=== PATIENT | female | born 1955 | race Caucasian/White ===

== ENCOUNTER 2025-01-08 07:40 | Outpatient (OUT) | payer MEDICARE, OTHER, SELFPAY ==
--- NOTE | 2025-01-08 | XR_ITS ---
The [address] [address] Patient Name: CLAIRE COKER MRN: [id number] date: 1955 Sex: F Assigned Patient Location: [facility] Current Patient Location: [facility] Accession/Order Number: [id number] Exam Date: 01/08/2025 11:00 Report Date: 01/08/2025 11:12 At the request of: ZULEMA DUMONT DO Procedure: XR hand RT min 3V RIGHT HAND - 4 views CLINICAL DATA: Hand pain and thumb trigger finger COMPARISON: None AP, lateral and oblique views were obtained with supplemental lateral view of the thumb. There is osteopenia. There is no acute fracture or dislocation. There is minimal joint space narrowing and hypertrophy at some of the interphalangeal joints. Minor joint space narrowing and hypertrophy also seen at the first carpal metacarpal joint. There are no significant soft tissue abnormalities. XR/XR hand RT min 3V IMPRESSION: OSTEOPENIA AND MINIMAL DEGENERATIVE CHANGE. NO ACUTE BONY FINDINGS. Impression dictated by: Roya Manning M.D. 01/08/2025 11:12 AM Dictation Location: [place] [address] Electronically authenticated by: [id number] Y Date: 01/08/2025 11:12
--- OUTSIDE RECORDS SUMMARY | 2025-01-08 07:43 | XMS_ITS | Encounter Summary ---
Author Organization [facility] Address [address] [place] [address] Care Team Providers Care Tie Binder Name Role Phone Unavailable Primary Care Provider Unavailabl e Source Comments In the event this information is protected by the Federal Confidentiality of Alcohol and Drug AbusePatient Records regulations: The Federal rules restrict any use of the information to criminally investigate or prosecute any alcohol or drug abuse patient.[facility] Encounter Details Date Type Department Care Team (Late st Contact Info) Description 06/04/2024 Get Medical Advice Neurology [address] [place] [id number] Jace Corbin MD [address] [place] [address] Iron results Social History Tobacco Use Types Packs/Day Years Used Date Smoking Tobacco: Never Smokeless Tobacco: Never Alcohol Use Standard Drinks/Week Comments Yes 0 (1 standard drink = 0.6 oz pur e alcohol) occ PHQ-2 Answer Date Recorded PHQ-2 score 0 05/02/2024 Area Deprivation Index Answer Date Corbin rded National Score (1-100), lower number is lower ri sk 65 05/09/2024 State Score (1-10), lower number is lower risk 5 05/09/2024 Data from: https://www.neighborhoodatlas.medicine.[facility]/. Last address used for calculation [address] 05/09/2024 Comments No Sex and Gender Information Value Date Recorded Sex Assigned at Not on file Legal Sex Female 8:25 AM EST Gender Identity Not on file Sexual Orientation Not on file documented as of this encounter Miscellaneous Notes * Telephone Encounter - Ariadne Ocampo - 06/04/2024 8:52 AM EDT Please review and advise on patient message: I noticed in my visit summary that iron infusions were recommended. We???re my iron levels too high for this? JANET 05/09/24 [facility] Virtual visit (vv) F/U not scheduled IMPRESSION/PLAN: 68 year old female with HTN p/w RLS with augmentation, currently taking ropinirole 0.75 mg in the evening. She has severe symptoms of RLS bothering her during the daytime when she keeps her legs still and at nighttime (waking her up). Patient is currently taking ferrous sulfate. Plan: -check iron profiles + CBC -once the results are back, will do IV iron transfusion (given the severity of her symptoms) -add lyrica 25 mg qhs, increase every 5-7 days by 25 mg to the target of 100 mg at 5 pm -continue ropinirole 0.75 mg qhs for now (plan to taper it down later) -follow-up in 3 months Jace Corbin MD, MSc documented in this encounter Plan of Treatment Upcoming Encounters Date Type Department Care Team (Late st Contact Info) Description 02/09/2025 12:00 PM EST [facility] Neurology [address] [address] Sylvie Paris, BALANCE BRIDGE ASSEMBLER.INJECTION OPERATOR [address] [place], [place] [id number] 3 month virtual follow up 03/10/2025 8:00 AM EST Office Visit Cardiology [address] [facility] [address] [place] [address] [place] [address] QT prolongation [R94.31] documented as of this encounter Visit Diagnoses Not on filedocumented in this encounter
--- OUTSIDE RECORDS SUMMARY | 2025-01-08 07:43 | XMS_ITS | Encounter Summary ---
Author Organization [facility] Address [address] [place] [address] Care Team Providers Care Oil Expeller Operator Name Role Phone Genet Yost MD Primary Care Provider [phone] Beth Wang LIFT TRUCK OPERATOR Unavailable [phone] Reason for Visit * Reason Comments Med Refill Encounter Details Date Type Department Care Team (Late st Contact Info) Description 09/12/2022 Refill [facility] [address] [facility] [place] [address] Beth Wang NP [address] [facility] 1 [place] [id number] Primary hypertension Social History Tobacco Use Types Packs/Day Years Used Date Smoking Tobacco: Never Assessed Comments Unknown Sex and Gender Information Value Date Recorded Sex Assigned at Not on file Legal Sex Female 7:39 PM EDT Gender Identity Female 06/07/2022 7:39 PM EDT Sexual Orientation Not on file documented as of this encounter Plan of Treatment Upcoming Encounters Date Type Department Care Team (Late st Contact Info) Description 02/23/2025 11:00 AM EST Office Visit [facility] [address] [facility] [place] [address] Isabell Reyna NP [address] [facility] [place] [address] documented as of this encounter Visit Diagnoses Diagnosis Primary hypertension Unspecified essential hypertension documented in this encounter Care Teams Oil Expeller Operator Relationship Specialty Start Date End Date Genet Yost MD [address] [place] [address] PCP - General Family Medicine 09/27/22 Beth Wang NP [address] [place] [address] PCP - ACO Reach 05/02/24 documented as of this encounter
--- OUTSIDE RECORDS SUMMARY | 2025-01-08 07:43 | XMS_ITS | Encounter Summary ---
Author Organization [facility] Address [address] [place] [address] Care Team Providers Care Crystal Evaluator Name Role Phone Genet Yost MD Primary Care Provider [phone] Beth Wang HAND STRIPER Unavailable [phone] Reason for Visit * Reason Comments Med Refill Encounter Details Date Type Department Care Team (Late st Contact Info) Description 09/29/2022 Refill [facility] [address] [place] [address] Beth Wang HAND STRIPER 1912 [facility] 1 [place] [address] Restless leg syndrome Social History Tobacco Use Types Packs/Day Years Used Date Smoking Tobacco: Never Smokeless Tobacco: Never Alcohol Use Standard Drinks/Week Comments Yes 0 (1 standard drink = 0.6 oz pur e alcohol) Humiliation, Afraid, Rape, and Kick questionnair e Answer Date Recorded Within the last year, have y ou been afraid of your partner or ex-partner? No 09/27/2022 Within the last year, have y ou been humiliated or emotionally abused in other ways by your partner or ex-partner? No Within the last year, have y ou been kicked, hit, slapped, or otherwise physically hurt by your partner or ex-partner? No 09/27/2022 Within the last year, have y ou been raped or forced to have any kind of sexual activity by your partner or ex-partner? No 09/27/2022 Social Connection and Isolation Panel Answer Date Recorded In a typical week, how many times do you talk on the phone with family, friends, or neighbors? More than three times a week 09/27/2022 How often do you get togethe r with friends or relatives? More than three times a week 09/27/2022 How often do you attend chur ch or restorationist services? More than 4 times per year 09/27/2022 Do you belong to any clubs o r organizations such as cheondoism groups, unions, fraternal or athletic groups, or school groups? Yes 09/27/2022 How often do you attend meet ings of the clubs or organizations you belong to? More than 4 times per year 09/27/2022 Are you , , di vorced, , never , or living with a partner? 09/27/2022 AUDIT-C Answer Date Recorded Q1: How often do you have a drink containing alc ohol? Monthly or less 09/28/2022 Q2: How many drinks containi ng alcohol do you have on a typical day when you are drinking? 1 or 2 09/28/2022 Q3: How often do you have si x or more drinks on one occasion? Never 09/28/2022 Overall Financial Resource Strain (CARDIA) Answe r Date Recorded How hard is it for you to pa y for the very basics like food, housing, medical care, and heating? Not hard at all 09/27/2022 PHQ-2 Answer Date Recorded Patient Health Questionnaire-2 Score 0 09/28/2022 [facility] - Occupational Stress Questionnaire Answer Date Recorded Do you feel stress - tense, restless, nervous, or anxious, or unable to sleep at night because your mind is troubled all the time - these days? Not at all 09/27/2022 Exercise Vital Sign Answer Date Recorde d On average, how many days pe r week do you engage in moderate to strenuous exercise (like a brisk walk)? 4 days 09/27/2022 On average, how many minutes do you engage in exercise at this level? 30 min 09/27/2022 Hunger Vital Sign Answer Date Recorded Within the past 12 months, y ou worried that your food would run out before you got the money to buy more. Never true 09/28/19 23 Within the past 12 months, t he food you bought just didn't last and you didn't have money to get more. Never true 09/27/2022 PRAPARE - Transportation Answer Date Re corded In the past 12 months, has l ack of transportation kept you from medical appointments or from getting medications? No 07/2022 In the past 12 months, has l ack of transportation kept you from meetings, work, or from getting things needed for daily living? No 09/27/2022 Housing Stability Vital Sign Answer Gino e Recorded In the last 12 months, was t here a time when you were not able to pay the mortgage or rent on time? No 09/27/2022 In the last 12 months, how many places have you lived? 1 09/27/2022 In the last 12 months, was t here a time when you did not have a steady place to sleep or slept in a senior care (including now)? No 09/27/2022 Comments Unknown Sex and Gender Information Value Date Recorded Sex Assigned at Not on file Legal Sex Female 7:39 PM EDT Gender Identity Female 06/07/2022 7:39 PM EDT Sexual Orientation Not on file COVID-19 Exposure Response Date Recorded In the last 10 days, have yo u been in contact with someone who was confirmed or suspected to have Coronavirus/COVID-19? No / Unsure 10/02/2022 7:13 PM EDT documented as of this encounter Miscellaneous Notes * Telephone Encounter - Rama Cornelius - 10/03/2022 10:19 AM EDT Pt called saying that she called back. I didn't see a message in her chart. * Telephone Encounter - Radha Kenyon MA - 10/03/2022 10:17 AM EDT Please let her 10 year risk for CVD is 8%, which means she is at increased risk of heart attack, stroke, and heart disease. She would benefit from statin therapy at this time, as well as heart healthy diet and increased physical activity. Otherwise labs are stable. documented in this encounter Plan of Treatment Upcoming Encounters Date Type Department Care Team (Late st Contact Info) Description 02/23/2025 11:00 AM EST [facility] [address] [facility] [address] [address] Isabell Reyna NP 14[address] [facility] [place], [place] [phone] documented as of this encounter Visit Diagnoses Diagnosis Restless leg syndrome Restless legs syndrome (RLS) documented in this encounter Care Teams Crystal Evaluator Relationship Specialty Start Date End Date Genet Yost MD 14[address] [facility] [place], [place] [phone] PCP - General Family Medicine 09/27/22 Beth Wang NP [address] [facility] [place] [address] PCP - ACO Reach 05/02/24 documented as of this encounter
--- OUTSIDE RECORDS SUMMARY | 2025-01-08 07:43 | XMS_ITS | Encounter Summary ---
Author Organization [facility] Address [address] [place] [address] Care Team Providers Care Salt Maker Name Role Phone Unavailable Primary Care Provider Unavailabl e Source Comments In the event this information is protected by the Federal Confidentiality of Alcohol and Drug AbusePatient Records regulations: The Federal rules restrict any use of the information to criminally investigate or prosecute any alcohol or drug abuse patient.[facility] Encounter Details Date Type Department Care Team (Late st Contact Info) Description 08/05/2024 Patient Msg Neurology [address] [place], [place] [phone] Provider, [facility] Reschedule 08/05/24 Social History Tobacco Use Types Packs/Day Years Used Date Smoking Tobacco: Never Smokeless Tobacco: Never Alcohol Use Standard Drinks/Week Comments Yes 0 (1 standard drink = 0.6 oz pur e alcohol) occ PHQ-2 Answer Date Recorded PHQ-2 score 0 08/05/2024 Area Deprivation Index Answer Date Corbin rded National Score (1-100), lower number is lower ri sk 65 05/09/2024 State Score (1-10), lower number is lower risk 5 05/09/2024 Data from: https://www.neighborhoodatlas.medicine.[facility].edu/. Last address used for calculation [address] [place] [address] 05/09/2024 Comments No Sex and Gender Information Value Date Recorded Sex Assigned at Not on file Legal Sex Female 8:25 AM EST Gender Identity Not on file Sexual Orientation Not on file documented as of this encounter Plan of Treatment Upcoming Encounters Date Type Department Care Team (Late st Contact Info) Description 02/09/2025 12:00 PM EST [facility] Neurology [address] [address] Sylvie Paris, SHOE SALESMAN.WAVE SOLDERING MACHINE OPERATOR [address] [place] [address] 3 month virtual follow up 03/10/2025 8:00 AM EST Office Visit Cardiology [address] [place], [place] [phone] [place] [address] [place] [address] QT prolongation [R94.31] documented as of this encounter Visit Diagnoses Not on filedocumented in this encounter
--- OUTSIDE RECORDS SUMMARY | 2025-01-08 07:43 | XMS_ITS | Clinical Summary ---
Author Organization [facility] Address [id number] [address] [place] [address] Care Team Providers Care Customer Service Rep Name Role Phone Unavailable Primary Care Provider Unavailabl e Social History Tobacco Use Types Packs/Day Years Used Date Smoking Tobacco: Never Assessed Childcare Answer Date Recorded Childcare Unknown 09/04/2018 Employment Answer Date Recorded Employment Unknown 09/04/2018 Purpose - Life Answer Date Recorded Purpose and direction in life Unknown Comments Unknown Sex and Gender Information Value Date Recorded Sex Assigned at Not on file Legal Sex Female 11:33 AM EDT Gender Identity Not on file Sexual Orientation Not on file Plan of Treatment Not on file Medical Devices Not on file Insurance [employer]
--- OUTSIDE RECORDS SUMMARY | 2025-01-08 07:43 | XMS_ITS | Clinical Summary ---
Author Organization [facility] Address [address] [facility], [address] [place] [address] Care Team Providers Care Carving Machine Operator Name Role Phone Ariadne Kramer MD Primary Care Provider [phone] Social History Tobacco Use Types Packs/Day Years Used Date Smoking Tobacco: Never Assessed Comments Unknown Sex and Gender Information Value Date Recorded Sex Assigned at Not on file Legal Sex Female 3:04 PM EST Gender Identity Not on file Sexual Orientation Not on file Plan of Treatment Not on file Insurance [employer] Care Teams Carving Machine Operator Relationship Specialty Start Date End Date Ariadne Kramer MD PCP - General 06/22/15
--- OUTSIDE RECORDS SUMMARY | 2025-01-08 07:43 | XMS_ITS | Encounter Summary ---
Author Organization [facility] Address [address] [place] [address] Care Team Providers Care Drop Pit Worker Name Role Phone Genet Yost MD Primary Care Provider [phone] Beth Wang RELEASE COORDINATOR Unavailable [phone] Reason for Visit * Reason Comments Med Refill Encounter Details Date Type Department Care Team (Late st Contact Info) Description 09/28/2022 Refill [facility] [address] [place] [address] Beth Wang RELEASE COORDINATOR 1912 [facility] 1 [place] [address] Restless leg syndrome Social History [...] often do you attend chur ch or gnosticist services? More than 4 times per year 09/27/2022 Do you belong to any clubs o r organizations such as temple groups, unions, fraternal or athletic groups, or [...] Recorded Patient Health Questionnaire-2 Score 0 09/28/2022 [facility] - Occupational Stress Questionnaire Answer Date Recorded [...] place to sleep or slept in a mcfp (including now)? No 09/27/2022 Comments Unknown Sex [...] suspected to have Coronavirus/COVID-19? No / Unsure 09/27/2022 9:16 AM EDT documented as of this encounter Functional Status * AUDIT-C Score Answer Date of Assessment Author 1 09/28/2022 7:57 AM Radha Grant MA * Question Answer Date of Assessment Author Q1: How often do you have a drink containing alcohol? Monthly or less 09/28/2022 7:57 AM Radha Grant MA Q2: How many drinks containing alcohol do you have on a typical day when you are drinking? 1 or 2 09/28/2022 7:57 AM Girish Grant MA Q3: How often do you have six or more drinks on one occasion? Never 09/28/2022 7:57 AM Radha Grant MA * Over the past 2 weeks, how often have you been bothered by any of the following problems? Question Answer Date of Assessment Author Little interest or pleasure in doing things Not at all 09/28/2022 8:01 AM EDT Radha Kenyon MA Feeling down, depressed, or hopeless Not at all 09/28/2022 8:01 AM EDT Radha Kenyon MA Patient Health Questionnaire -2 Score 0 09/28/2022 8:01 AM EDT Radha Kenyon MA documented as of this encounter Plan of Treatment Upcoming Encounters Date Type Department Care Team (Late st Contact Info) Description 02/23/2025 11:00 AM EST Office Visit [facility] [address] [place] [address] Isabell Reyna NP [address] [place], [place] [phone] documented as of this encounter Visit Diagnoses Diagnosis Restless leg syndrome Restless legs syndrome (RLS) documented in this encounter Care Teams Drop Pit Worker Relationship Specialty Start Date End Date Genet Yost MD [address] [place], [place] [phone] PCP - General Family Medicine 09/27/22 Beth Wang NP [address] [facility] [place] [address] PCP - ACO Reach 05/02/24 documented as of this encounter
--- OUTSIDE RECORDS SUMMARY | 2025-01-08 07:44 | XMS_ITS | Encounter Summary ---
Author Organization [facility] Address [address] [place] [address] Care Team Providers Care Lead Simulation Modeling Engineer Name Role Phone Genet Yost MD Primary Care Provider [phone] Beth Wang PATIENT SUPPORT REPRESENTATIVE Unavailable [phone] Reason for Visit * Reason Comments Med Refill Encounter Details Date Type Department Care Team (Late st Contact Info) Description 01/17/2023 Refill [facility] [address] [place] [address] Beth Wang PATIENT SUPPORT REPRESENTATIVE [address] [facility] [place] [phone] Primary hypertension Social History Tobacco Use Types Packs/Day Years Used Date Smoking Tobacco: Never Smokeless Tobacco: Never Alcohol Use Standard Drinks/Week Comments Yes 2 (1 standard drink = 0.6 oz pur [...] often do you attend chur ch or orthodoxy services? More than 4 times per year 09/27/2022 Do you belong to any clubs o r organizations such as samaritan groups, unions, fraternal or athletic groups, or [...] Recorded Patient Health Questionnaire-2 Score 0 09/28/2022 [facility] - Occupational Stress Questionnaire Answer Date Recorded [...] place to sleep or slept in a care home (including now)? No 09/27/2022 Comments Unknown Sex and Gender Information Value Date Recorded Sex Assigned at Not on file Legal Sex Female 7:39 PM EDT Gender Identity Female 06/07/2022 7:39 PM EDT Sexual Orientation Not on file documented as of this encounter Miscellaneous Notes * Telephone Encounter - Radha Kenyon MA - 01/18/2023 9:45 AM EDT Approving, but needs appt for additional refills. documented in this encounter Plan of Treatment Upcoming Encounters Date Type Department Care Team (Late st Contact Info) Description 02/23/2025 11:00 AM EST Office Visit [facility] [address] [place] [address] Isabell Reyna NP [address] [place], [place] [address] documented as of this encounter Visit Diagnoses Diagnosis Primary hypertension Unspecified essential hypertension documented in this encounter Care Teams Lead Simulation Modeling Engineer Relationship Specialty Start Date End Date Genet Yost MD [address] [facility] [address] [place], [place] [phone] PCP - General Family Medicine 09/27/22 Beth Wang NP [facility] [address] [address] PCP - ACO Reach 05/02/24 documented as of this encounter
--- OUTSIDE RECORDS SUMMARY | 2025-01-08 07:44 | XMS_ITS | Encounter Summary ---
Author Organization [facility] Address [address] [place] [address] Care Team Providers Care Supply Manager Name Role Phone Genet Yost MD Primary Care Provider [phone] Beth Wang CARE TRANSITION MGR Unavailable [phone] Reason for Visit * Reason Comments Med Refill Encounter Details Date Type Department Care Team (Late st Contact Info) Description 10/09/2022 Refill [facility] [address] [place] [address] Beth Wang CARE TRANSITION MGR [facility] [place] [address] Primary hypertension Social History Tobacco Use Types [...] any clubs o r organizations such as mosque groups, unions, fraternal or athletic groups, or [...] Recorded Patient Health Questionnaire-2 Score 0 09/28/2022 [facility] - Occupational Stress Questionnaire Answer Date [...] place to sleep or slept in a half-way (including now)? No 09/27/2022 Comments Unknown Sex [...] PM EDT documented as of this encounter Plan of Treatment Upcoming Encounters Date Type Department Care Team (Late st Contact Info) Description 02/23/2025 11:00 AM EST Office Visit [facility] [address] [place] [address] Isabell Reyna NP [address] [place] [address] documented as of this encounter Visit Diagnoses Diagnosis Primary hypertension Unspecified essential hypertension documented in this encounter Care Teams Supply Manager Relationship Specialty Start Date End Date Genet Yost MD [address] [place], [place] [phone] PCP - General Family Medicine 09/27/22 Beth Wang NP [address] [place] [address] PCP - ACO Reach 05/02/24 documented as of this encounter
--- OUTSIDE RECORDS SUMMARY | 2025-01-08 07:44 | XMS_ITS | Encounter Summary ---
Author Organization [facility] Address [address] [place] [address] Care Team Providers Care Painting Manager Name Role Phone Unavailable Primary Care Provider Unavailabl e Source Comments In the event this information is protected by the Federal Confidentiality of Alcohol and Drug AbusePatient Records regulations: The Federal rules restrict any use of the information to criminally investigate or prosecute any alcohol or drug abuse patient.[facility] Reason for Visit * Reason Onset Date Comments Refill Request 12/21/2024 Encounter Details Date Type Department Care Team (Late st Contact Info) Description 12/21/2024 Refill Neurology [address] [id number] Arti Quiroga, AALIYAH.PRE OWNED SALES CONSULTANT [address] [phone] Refill Request Social History Tobacco Use Types Packs/Day Years [...] is lower risk 5 05/09/2024 Data from: https://www.neighborhoodatlas.[facility]/. Last address used for calculation Kristian PEREZ 05/09/2024 Comments No Sex and Gender Information Value Date Recorded Sex Assigned at Not on file Legal Sex Female 8:25 AM EST Gender Identity Not on file Sexual Orientation Not on file documented as of this encounter Miscellaneous Notes * Telephone Encounter - Sheri Batista APRN.CNP - 12/22/2024 1:46 PM EDT PDMP website checked and validated. All prescriptions have been APPROPRIATELY filled. No suspiciousactivity was identified. 12/22/2024 by Sheri Batista APRN.MICHAEL Rx approved. Electronically signed: Sheri Batista APRN.CNP 12/22/24 1:47 PM * Telephone Encounter - Rico Negrete RN - 12/22/2024 10:59 AM EDT JANET: 11/05/24 In Person: 11/05/24 MD: 11/05/24 F/U: 02/09/25 IMPRESSION: Restless legs syndrome (primary encounter diagnosis) Iron deficiency 1. Restless legs syndrome (G25.81) Severe symptoms with augmentation, occurring throughout the day and worsening at night around 6 PM.Currently taking ropinirole 0.75 mg in the evening and pregabalin 100 mg at 4:30 PM. his does not help with her RLS at all and she experiences no side effects. Iron profile showed ferritin at 90 ng/mL and transferrin saturation at 30%. Insurance does not approve iron infusion. She is taking ferroussulfate. - Continue ropinirole 0.75 mg in the evening. - Continue pregabalin 200 mg - Continue oral ferrous sulfate. - EKG, if there is no QT prolongation, will start the patient on suboxone 1/8 films daily with planto titrate up gradually - Follow-up in 3 months to reassess symptoms and treatment efficacy. Clinical Global Impression of Change ( CGI-C) Compared to the patient's condition at baseline, how much has the patient changed? No change Jace Corbin MD documented in this encounter Plan of Treatment Upcoming Encounters Date Type Department Care Team (Late st Contact Info) Description 02/09/2025 12:00 PM EST [facility] Neurology [address] [address] Sylvie Paris, ORACLE FUSION MIDDLEWARE ARCHITECT.PRE OWNED SALES CONSULTANT [address] [place] [address] 3 month virtual follow up 03/10/2025 8:00 AM EST Office Visit Cardiology [address] [facility] [place] [address] [place] [address] [place] [address] QT prolongation [R94.31] documented as of this encounter Visit Diagnoses Diagnosis Restless legs syndrome Restless legs syndrome (RLS) documented in this encounter
--- OUTSIDE RECORDS SUMMARY | 2025-01-08 07:44 | XMS_ITS | Encounter Summary ---
Author Organization [facility] Address [address] [facility] [place] [address] Care Team Providers Care Machine Preservative Filler Name Role Phone Genet Yost MD Primary Care Provider [phone] Beth Wang CASH SPECIALIST Unavailable [phone] Reason for Visit * Reason Comments Med Refill Encounter Details Date Type Department Care Team (Late st Contact Info) Description 07/19/2024 Refill [facility] [address] [facility] [place] [address] Isabell Reyna NP [address] [place], [place] [phone] Restless leg syndrome Social History Tobacco Use Types Packs/Day Years Used Date Smoking Tobacco: Never Smokeless Tobacco: Never Alcohol Use Standard Drinks/Week Comments Not Currently 2 (1 standard drink = 0.6 oz pur e alcohol) B1300 Health Literacy Answer Date Recor ded How often do you need to hav e someone help you when you read instructions, pamphlets, or other written material from your doctor or pharmacy? Never 02/14/2024 Humiliation, Afraid, Rape, and Kick questionnair e [...] neighbors? More than three times a week 02/14/2024 How often do you get togethe r with friends or relatives? More than three times a week 02/14/2024 How often do you attend chur or bahai services? More than 4 times per year 02/14/2024 Do you belong to any clubs o r organizations such as sabianism groups, unions, fraternal or athletic groups, or school groups? Yes 02/14/2024 How often do you attend meet ings of the clubs or organizations you belong to? More than 4 times per year 02/14/2024 Are you , , di vorced, , never , or living with a partner? 02/14/2024 AUDIT-C Answer Date Recorded Q1: How often do you have a drink containing alc ohol? Monthly or less 02/14/2024 Q2: How many drinks containi ng alcohol do you have on a typical day when you are drinking? 1 or 2 02/14/2024 Q3: How often do you have si x or more drinks on one occasion? Never 02/14/2024 Overall Financial Resource Strain (CARDIA) Answe r Date Recorded How hard is it for you to pa y for the very basics like food, housing, medical care, and heating? Not hard at all 02/14/2024 PHQ-2 Answer Date Recorded Patient Health Questionnaire-2 Score 0 02/15/2024 [facility] - Occupational Stress Questionnaire Answer Date Recorded Do you feel stress - tense, restless, nervous, or anxious, or unable to sleep at night because your mind is troubled all the time - these days? Not at all 02/14/2024 Exercise Vital Sign Answer Date Recorde d On average, how many days pe r week do you engage in moderate to strenuous exercise (like a brisk walk)? 3 days 02/14/2024 On average, how many minutes do you engage in exercise at this level? 20 min 02/14/2024 Hunger Vital Sign Answer Date Recorded Within the past 12 months, y ou worried that your food would run out before you got the money to buy more. Never true 02/14/20 24 Within the past 12 months, t he food you bought just didn't last and you didn't have money to get more. Never true 02/14/2024 PRAPARE - Transportation Answer Date Re corded In the past 12 months, has l ack of transportation kept you from medical appointments or from getting medications? No 01/25 In the past 12 months, has l ack of transportation kept you from meetings, work, or from getting things needed for daily living? No 02/14/2024 Housing Stability Vital Sign Answer Gino e [...] place to sleep or slept in a correction (including now)? No 09/27/2022 Housing Stability Vital Sign Answer Gino e Recorded In the last 12 months, was t here a time when you were not able to pay the mortgage or rent on time? No 02/14/2024 In the past 12 months, how m any times have you moved where you were living? 0 02/14/2024 At any time in the past 12 m [facility], were you homeless or living in a correction (including now)? No 02/14/2024 Comments Unknown Sex and Gender Information Value Date Recorded Sex Assigned at Not on file Legal Sex Female 7:39 PM EDT Gender Identity Female 06/07/2022 7:39 PM EDT Sexual Orientation Not on file documented as of this encounter Miscellaneous Notes * Telephone Encounter - Mindy Haley MA - 07/19/2024 10:49 AM EDT duplicate documented in this encounter Plan of Treatment Upcoming Encounters Date Type Department Care Team (Late st Contact Info) Description 02/23/2025 11:00 AM EST Office Visit [facility] [address] [facility] [place] [phone] Isabell Reyna NP [address] [facility] [address] [place] [phone] documented as of this encounter Visit Diagnoses Diagnosis Restless leg syndrome Restless legs syndrome (RLS) documented in this encounter Additional Health Concerns Assessment Noted Time PHQ-9 Depression Total Score: 0 02/15/20 24 8:00 AM EST documented as of this encounter Care Teams Machine Preservative Filler Relationship Specialty Start Date End Date Genet Yost MD [address] [facility] [address] [place] [phone] PCP - General Family Medicine 09/27/22 Beth Wang NP [address] [phone] PCP - ACO Reach 05/02/24 documented as of this encounter
--- OUTSIDE RECORDS SUMMARY | 2025-01-08 07:44 | XMS_ITS | Clinical Summary ---
Author Organization [facility] Address [address] [place] [address] Care Team Providers Care Generalist Name Role Phone Genet Yost MD Primary Care Provider [phone] Beth Wang INVENTORY CONTROL ANALYST Unavailable [phone] Allergies Active Allergy Reactions Criticality Noted Date Comments Codeine Hives 09/28/2022 Penicillin G Hives 09/28/2022 Medications aspirin 81 MG EC tablet 1 (one) time each day at the same time. Active Multiple Vitamin (Multivitamin Adult) tablet Orally Active Magnesium Gluconate (MAGNESIUM 27 PO) Magnesium Ac tive Avon 3 340 MG capsule delayed-release Avon 3 Acti ve cholecalciferol (Vitamin D-3) 50 MCG (1999) capsule Vitamin D Active losartan-hydroCHL OROthiazide (Hyzaar) 100-25 MG tabletIndications :Primary hypertension Take 1 tablet by mouth Daily 90 tablet 1 5 01/11/20 25 Active rOPINIRole (Requip) 0.25 MG tabletIndications :Restless Leg Syndrome Take 1 tablet (0.25 mg) by mouth at bedtime 90 tablet 1 5 Active rOPINIRole (Requip) 0.5 MG tabletIndications :Restless leg syndrome TAKE 1 TABLET BY MOUTH EVERY NIGHT 1 TO 3 HOURS BEFORE BEDTIME 90 tablet 1 5 Active triamcinolone (Kenalog) 0.1 % creamIndications: Eczema, unspecified type APPLY TOPICALLY TO THE AFFECTED AREA TWICE DAILY FOR 7 DAYS 80 g 1 5 Active amLODIPine (Norvasc) 10 MG tabletIndications :Primary hypertension Take 1 tablet (10 mg) by mouth Daily 90 tablet 1 5 Active metoprolol succinate XL (Toprol-XL) 25 MG 24 hr tabletIndications :Primary hypertension Take 1 tablet (25 mg) by mouth Daily Do not crush or chew. 90 tablet 5 02/20/20 25 Active ferrous sulfate 325 (65 Fe) MG EC tabletIndications :Restless leg syndrome Take 1 tablet (325 mg) by mouth Daily Do not crush, chew, or split. 90 tablet 5 Active Active Problems Problem Noted Date Diagnosed Date Arthritis of right knee 09/28/2022 Assessment & Plan (02/15/2024 8:39 AM EST): Stable. Analgesics OTC prn Essential hypertension 09/28/2022 Assessment & Plan (02/15/2024 10:11 AM EST): BP elevated today in office, will have her check home readings H/O hysterectomy for benign disease 09/28/2022 Obesity (BMI 30-39.9) 09/28/2022 Primary osteoarthritis of right foot 09/28/2022 Assessment & Plan (02/15/2024 8:39 AM EST): Stable Analgesics OTC prn. . Restless leg syndrome 09/28/2022 Assessment & Plan (02/15/2024 8:38 AM EST): Check ferritin levels. On requip Unspecified mononeuropathy of right lower limb 0 09/28/2022 History of myopia 12/08/2013 After cataract of both eyes not obscuring vision 12/08/2013 Lens replaced 12/08/2013 Resolved Problems Problem Noted Date Diagnosed Date Resolved Date Mixed hyperlipidemia 09/28/2022 024 Morbid obesity 09/28/2022 02/15/2024 Pure hyperglyceridemia 09/28/202202/14 Urinary tract infection 09/28/2022 07/0 08/2022 Encounters Date Type Department Care Team Description 12/16/[address] [facility] Medicine [facility] [place] [address] Laney Sultana MA 12/08/[address] [facility] [place] [address] [facility] [place] [address] Genet Yost MD Restless leg syndrome [facility] [address] [facility] [place] [address] Isabell Reyna NP Primary hypertension 10/13/[address] [facility] [place] [address] [facility] [place] [address] Isabell Reyna NP Eczema, unspecified type from Last 3 Months Family History Medical History Relation Name Comments Heart disease Father Father Hypertension Father Father Arthritis Mother Mother Dementia Mother Mother Miscarriages / Stillbirths Mother Mother Breast cancer Sibling Diabetes Sibling Hypertension Sibling Cancer Sister Sister Learning disabilities Sister Sister Relation Name Status Comments Father Father Mother Mother Alive Sibling Sister Sister Social History Tobacco Use Types Packs/Day Years Used Date Smoking Tobacco: Never Smokeless Tobacco: Never Tobacco Cessation:Counseling Given: Not Answered Alcohol Use Standard Drinks/Week Comments Not Currently [...] How often do you attend chur or jew services? More than 4 times per year 02/14/2024 Do you belong to any clubs o r organizations such as episcopal groups, unions, fraternal or athletic groups, or [...] Recorded Patient Health Questionnaire-2 Score 0 02/15/2024 [facility] - Occupational Stress [...] place to sleep or slept in a fpc (including now)? No 09/27/2022 Housing Stability Vital Sign Answer Gino e Recorded In the last 12 months, was t here a time when you were not able to pay the mortgage or rent on time? No 02/14/2024 In the past 12 months, how m any times have you moved where you were living? 0 02/14/2024 At any time in the past 12 m [facility], were you homeless or living in a fpc (including now)? No 02/14/2024 Comments Unknown Sex and Gender Information Value Date Recorded Sex Assigned at Not on file Legal Sex Female 7:39 PM EDT Gender Identity Female 06/07/2022 7:39 PM EDT Sexual Orientation Not on file Last Filed Vital Signs Vital Sign Reading Time Taken Comments Blood Pressure 126/76 04/02/2024 10:30 AM EST Pulse 77 02/15/2024 8:18 AM EST Temperature 35.3 C (95.6 F) 07/05/2023 7:55 AM EDT Respiratory Rate - - Oxygen Saturation 99% 02/15/2024 8:18 AM EST Inhaled Oxygen Concentration - - Weight 106 kg (234 lb 6.4 oz) 02/15/2024 8:18 AM EST Height 168.9 cm (5' 6.5 ) 02/15/2024 8:18 AM EST Body Mass Index 37.27 02/15/2024 8:18 AM EST Plan of Treatment Upcoming Encounters Date Type Department Care Team (Late st Contact Info) Description 02/23/2025 11:00 AM EST Office Visit [facility] [address] [place] [phone] Isabell Reyna NP [address] [place] [address] Health Maintenance Due Date Last Done Comments CT Colonography 1957 FIT 1957 FOBT 1955 Sigmoidoscopy 1955 Pneumococcal Vaccine: 65+ Ye ars (1 of 1 - PCV) 11/22/2007 Influenza Vaccine (#1) 2024 Medicare Annual Wellness (AWV) 02/14/2025 1 04/16/2023, 02/15/2024, 09/28/2022 Mammogram 02/18/2025 02/19/2024, 09/23, 07/07/2021, Additional history exists FIT-DNA 02/26/2027 02/27/2024 Colonoscopy 05/25/2027 05/24/2017, 04/04/2013 Colorectal Cancer Screening 05/25/2027 Procedures Procedure Name Priority Date/Time Associated Diagnosis Comments LAB COLOGUARD COLON CANCER SCREEN Routine 02/27/2024 10:10 AM EST Screening for malignant neoplasm of colon BI MAMMOGRAM SCREENING TOMOSYNTHESIS BILATERAL Routine 02/19/2024 1:15 PM EST Encounter for screening mammogram for breast cancer HM COLONOSCOPY Routine 05/24/2017 8:57 PM EST from Last 3 Months or Most Recently Relevant to Health Maintenance Results * Cologuard?? colon cancer screening (02/27/2024 10:10 AM EST) NONINV COLON CA DNA+OCC BLD SCRN STL-IMP Negative Negative 03/07/2024 8:34 PM EST [email or web address] (CLIA #:[id number]) Comment: NEGATIVE TEST RESULT. A negative Cologuard result indicates a low likelihood that a colorectal cancer (CRC) or advanced adenoma (adenomatous polyps with more advanced pre-malignant features) is present. The chance that a person with a negative Cologuard test has a colorectal cancer is less than 1 in 1500 (negative predictive value >99.9%) or has an advanced adenoma is less than 5.3% (negative predictive value 94.7%). These data are based on a prospective cross-sectional study of 10,000 individuals at average risk for colorectal cancer who were screened with both Cologuard and colonoscopy. (Shari Storm al, N Engl J Med 2014;370(14):5031-8548) The normal value (reference range) for this assay is negative. COLOGUARD RE-SCREENING RECOMMENDATION: Periodic colorectal cancer screening is an important part of preventive healthcare for asymptomatic individuals at average risk for colorectal cancer. Following a negative Cologuard result, the [place] [employer] and U.S. Multi-Society Task Force screening guidelines recommend a Cologuard re-screening interval of 3 years. References: [place] [employer] Guideline for Colorectal Cancer Screening: https://www.cancer.org/cancer/aksti-kbimjt-uwapne/krlnejfmo-ccfafqdat-nssuyrm/ac s-rec ommendations.html.; Diallo CASEY, Jennifer NOVA, Travis JaramilloK, Colorectal Cancer Screening: Recommendations for Physicians and Patients from the U.S. Multi-Society Task Force on Colorectal Cancer Screening , Am J Gastroenterology 2017; 112:1027-1232. TEST DESCRIPTION: Composite algorithmic analysis of stool DNA-biomarkers with hemoglobin immunoassay. Quantitative values of individual biomarkers are not reportable and are not associated with individual biomarker result reference ranges. Cologuard is intended for colorectal cancer screening of adults of either sex, 45 years or older, who are at average-risk for colorectal cancer (CRC). Cologuard has been approved for use by the U.S. FDA. The performance of Cologuard was established in a cross sectional study of average-risk adults aged 50-84. Cologuard performance in patients ages 45 to 49 years was estimated by sub-group analysis of near-age groups. Colonoscopies performed for a positive result may find as the most clinically significant lesion: colorectal cancer [4.0%], advanced adenoma (including sessile serrated polyps greater than or equal to 1cm diameter) [20%] or non- advanced adenoma [31%]; or no colorectal neoplasia [45%]. These estimates are derived from a prospective cross-sectional screening study of 10,000 individuals at average risk for colorectal cancer who were screened with both Cologuard and colonoscopy. (Shari Davila et al, N Engl J Med 2014;370(14):6140-5085.) Cologuard may produce a false negative or false positive result (no colorectal cancer or precancerous polyp present at colonoscopy follow up). A negative Cologuard test result does not guarantee the absence of CRC or advanced adenoma (pre-cancer). The current Cologuard screening interval is every 3 years. ([place] [employer] and U.S. Multi-Society Task Force). Cologuard performance data in a 10,000 patient pivotal study using colonoscopy as the reference method can be accessed at the following location: www.Re2you.People Power/results. Additional description of the Cologuard test process, warnings and precautions can be found at www.cologuard.com. Stool specimen (specimen) 02/27/2024 10:10 AM EST 02/28/2024 3:39 PM EST us Isabell Reyna NP LAB MOLECULAR DIAGNOSTICS ORDER SUDHA Final Result .[employer] (CLIA #:[id number]) [address] [place] [address] [phone] [employer] (CLIA #:[id number]) [address] [place] [address] * Bilateral screening mammogram with tomosynthesis (02/19/2024 1:15 PM EST) Anatomical Region Laterality Modality Breast Bilateral Mammography 02/20/2024 11:1 3 AM EST Impressions 02/20/2024 11:19 AM EST Impression: No specific evidence of malignancy seen in either breast. BIRADS 2 - Benign Findings DENSITY: There are scattered areas of fibroglandular density. FOLLOW-UP: Routine Screening Mammogram ELECTRONICALLY SIGNED BY: Samuel Lynn M.D. Narrative 02/20/2024 11:19 AM EST Examination: BI MAMMOGRAM SCREENING TOMOSYNTHESIS BILATERAL Clinical History: screening Technique: Screening digital mammography study of both breasts was performed with 2-D and 3-D tomosynthesis imaging. Study was compared to the prior exam dated 10/03/2022. Findings: There is no evidence of interval dominant spiculated mass, grouped microcalcifications, or skin thickening which would be suggestive of malignancy. Scattered benign-appearing calcifications are noted bilaterally. Postbiopsy clip is seen on the left similar to the prior study. A few small benign-appearing nodular densities on the right, similar to the prior study. Axillary lymph nodes are noted on the left. Procedure Note Samuel Lynn MD - 02/20/2024 Examination: BI MAMMOGRAM SCREENING TOMOSYNTHESIS BILATERAL Clinical History: screening Technique: Screening digital mammography study of both breasts wasperformed with 2-D and 3-D tomosynthesis imaging. Study was compared tothe prior exam dated 10/03/2022. Findings: There is no evidence of interval dominant spiculated mass,grouped microcalcifications, or skin thickening which would be suggestiveof malignancy. Scattered benign-appearing calcifications are noted bilaterally.Postbiopsy clip is seen on the left similar to the prior study. A fewsmall benign-appearing nodular densities on the right, similar to theprior study. Axillary lymph nodes are noted on the left. IMPRESSION: Impression: No specific evidence of malignancy seen in either breast. BIRADS 2 - Benign Findings DENSITY: There are scattered areas of fibroglandular density. FOLLOW-UP: Routine Screening Mammogram ELECTRONICALLY SIGNED BY: Samuel Lynn M.D. Isabell Reyna NP IMG BI PROCEDURES Final Result * Hm Colonoscopy (05/24/2017 8:57 PM EST) Anatomical Region Laterality Modality Other us Genet Yost MD HEALTH MAINTENANCE Final Resu lt from Last 3 Months or Most Recently Relevant to Health Maintenance Insurance [employer] Care Teams Generalist Relationship Specialty Start Date End Date Genet Yost MD [address] [place] [address] PCP - General Family Medicine 09/27/22 Beth Wang NP [address] [phone] PCP - ACO Reach 05/02/24
--- OUTSIDE RECORDS SUMMARY | 2025-01-08 07:44 | XMS_ITS | Encounter Summary ---
Author Organization [facility] Address [address] [place] [address] Care Team Providers Care Software Tools Build Engineer Name Role Phone Unavailable Primary Care Provider Unavailabl e Source Comments In the event this information is protected by the Federal Confidentiality of Alcohol and Drug AbusePatient Records regulations: The Federal rules restrict any use of the information to criminally investigate or prosecute any alcohol or drug abuse patient.[facility] Encounter Details Date Type Department Care Team (Late st Contact Info) Description 12/22/2024 Get Medical Advice Neurology [address] [id number] Alix Alvarado MD [address] [facility] [place] [address] New medication Social History Tobacco Use Types Packs/Day Years [...] is lower risk 5 05/09/2024 Data from: https://www.[facility] hospital[facility]/. Last address used for calculation [address] 05/09/2024 Comments No Sex and Gender Information Value Date Recorded Sex Assigned at Not on file Legal Sex Female 8:25 AM EST Gender Identity Not on file Sexual Orientation Not on file documented as of this encounter Miscellaneous Notes * Telephone Encounter - Delilah Varma RN - 01/02/2025 9:15 AM EDT MyChart message sent * Addendum Note - Alix Alvarado MD - 01/02/2025 9:08 AM EDT Addended by: ALIX ALVARADO on: 01/02/2025 09:08 AM Modules accepted: Orders * Telephone Encounter - Rico Negrete RN - 12/30/2024 11:13 AM EDT MyChart message sent to patient. * Telephone Encounter - Rico Negrete RN - 12/25/2024 4:15 PM EDT [facility] cardiology notes routed to provider for review. * Telephone Encounter - Rico Negrete RN - 12/23/2024 9:02 AM EDT Hannaht message sent to patient. * Telephone Encounter - Rico Negrete RN - 12/22/2024 10:04 AM EDT Message routed to provider to please advise. documented in this encounter Plan of Treatment Upcoming Encounters Date Type Department Care Team (Late st Contact Info) Description 02/09/2025 12:00 PM EST [facility] Neurology [address] [address] Sylvie Paris, STONE AND PLATE PREPARER APPRENTICE.RAIL FLAW DETECTOR OPERATOR [address] [place] [address] 3 month virtual follow up 03/10/2025 8:00 AM EST Office Visit Cardiology [address] [facility] [place], [place] [phone] [place] [address] [place] [address] QT prolongation [R94.31] documented as of this encounter Visit Diagnoses Diagnosis Restless legs syndrome- Primary Restless legs syndrome (RLS) documented in this encounter
--- OUTSIDE RECORDS SUMMARY | 2025-01-08 07:44 | XMS_ITS | Encounter Summary ---
Author Organization [facility] Address [address] [place] [address] Care Team Providers Care Hasher Machine Operator Name Role Phone Genet Yost MD Primary Care Provider [phone] Beth Wang PROPOSAL DEVELOPMENT MANAGER Unavailable [phone] Reason for Visit * Reason Comments Med Refill Encounter Details Date Type Department Care Team (Late st Contact Info) Description 01/18/2023 Refill [facility] [address] [place] [address] Beth Wang PROPOSAL DEVELOPMENT MANAGER [address] [facility] 1 [place] [address] Primary hypertension ; Restless leg syndrome Social History Tobacco Use [...] often do you attend chur ch or rastafari services? More than 4 times per year 09/27/2022 Do you belong to any clubs o r organizations such as pentecostalism groups, unions, fraternal or athletic groups, or [...] Recorded Patient Health Questionnaire-2 Score 0 09/28/2022 [facility] - Occupational Stress Questionnaire Answer Date Recorded [...] place to sleep or slept in a snf (including now)? No 09/27/2022 Comments Unknown Sex [...] 02/23/2025 11:00 AM EST Office Visit [facility] 14[address] [place] [phone] Isabell Reyna NP [address] [place], [place] [phone] documented as of this encounter Visit Diagnoses Diagnosis Primary hypertension Unspecified essential hypertension Restless leg syndrome Restless legs syndrome (RLS) documented in this encounter Care Teams Hasher Machine Operator Relationship Specialty Start Date End Date Genet Yost MD [address] [place], [place] [phone] PCP - General Family Medicine 09/27/22 Beth Wang NP [address] [address] PCP - ACO Reach 05/02/24 documented as of this encounter
--- OUTSIDE RECORDS SUMMARY | 2025-01-08 07:44 | XMS_ITS | Encounter Summary ---
Author Organization [facility] Address [address] [place] [address] Care Team Providers Care Marine Erector Name Role Phone Genet Yost MD Primary Care Provider [phone] Beth Wang GAS MAIN FITTER Unavailable [phone] Reason for Visit * Reason Comments Med Refill Encounter Details Date Type Department Care Team (Late st Contact Info) Description 07/26/2023 Refill [facility] [address] [place] [address] Beth Wang GAS MAIN FITTER [address] [facility] [place] [address] Primary hypertension Social History Tobacco [...] any clubs o r organizations such as voodoo groups, unions, fraternal or athletic groups, or [...] Date Recorded Patient Health Questionnaire-2 Score 0 07/05/2023 [facility] - Occupational Stress Questionnaire Answer Date [...] in a fpc (including now)? No 09/27/2022 Comments Unknown Sex [...] EST Office Visit [facility] [address] [place] [address] Isabell Reyna NP [address] [place] [address] documented as of this encounter Visit Diagnoses Diagnosis Primary hypertension Unspecified essential hypertension documented in this encounter Care Teams Marine Erector Relationship Specialty Start Date End Date Genet Yost MD [address] [place], [place] [phone] PCP - General Family Medicine 09/27/22 Beth Wang NP [address] [facility] 1 [place] [phone] PCP - ACO Reach 05/02/24 documented as of this encounter
--- OUTSIDE RECORDS SUMMARY | 2025-01-08 07:44 | XMS_ITS | Encounter Summary ---
Author Organization [facility] Address [address] [email or web address] [place] [address] Care Team Providers Care Cage Unloader Name Role Phone Genet Yost MD Primary Care Provider [phone] Beth Wang CONSUMER ELECTRONICS MERCHANDISER Unavailable [phone] Reason for Visit * Reason Comments Med Refill Encounter Details Date Type Department Care Team (Late st Contact Info) Description 01/25/2023 Refill [facility] [address] [facility] [place] [address] Genet Yost MD [address] [facility] [address] [place], [place] [phone] Restless leg syndrome Social History Tobacco Use [...] 09/27/2022 How often do you attend chur or orthodoxy services? More than 4 times per year 09/27/2022 Do you belong to any clubs o r organizations such as episcopalian groups, unions, fraternal or athletic groups, or [...] Recorded Patient Health Questionnaire-2 Score 0 09/28/2022 [facility] - Occupational Stress Questionnaire Answer Date Recorded [...] place to sleep or slept in a longterm (including now)? No 09/27/2022 Comments Unknown Sex [...] 02/23/2025 11:00 AM EST Office Visit [facility] [address] [place] [phone] Isabell Reyna NP [address] [place], [place] [phone] documented as of this encounter Visit Diagnoses Diagnosis Restless leg syndrome Restless legs syndrome (RLS) documented in this encounter Care Teams Cage Unloader Relationship Specialty Start Date End Date Genet Yost MD [address] [place], [place] [phone] PCP - General Family Medicine 09/27/22 Beth Wang NP [address] [place] [address] PCP - ACO Reach 05/02/24 documented as of this encounter
--- OUTSIDE RECORDS SUMMARY | 2025-01-08 07:44 | XMS_ITS | Encounter Summary ---
Author Organization [facility] Address [address] [place] [address] Care Team Providers Care Pourer Crane Ladle Name Role Phone Unavailable Primary Care Provider Unavailabl e Source Comments In the event this information is protected by the Federal Confidentiality of Alcohol and Drug AbusePatient Records regulations: The Federal rules restrict any use of the information to criminally investigate or prosecute any alcohol or drug abuse patient.[facility] Encounter Details Date Type Department Care Team (Late st Contact Info) Description 12/30/2024 Orders Only Neurology [address] [place] [address] [place] [address] [place] [address]. [place] [phone] Restless legs syndrome (Primary Dx) Social History Tobacco Use Types Packs/Day Years [...] is lower risk 5 05/09/2024 Data from: https://www.neighborhoodatlas.medicine.[facility]/. Last address used for calculation [address] 05/09/2024 Comments No Sex and Gender Information Value Date Recorded Sex Assigned at Not on file Legal Sex Female 8:25 AM EST Gender Identity Not on file Sexual Orientation Not on file documented as of this encounter Progress Notes * Jace Corbin MD - 12/30/2024 2:07 PM EDT Taper off pregabalin by 50 mg each week documented in this encounter Plan of Treatment Upcoming Encounters Date Type Department Care Team (Late st Contact Info) Description 02/09/2025 12:00 PM EST [facility] Neurology [address] [place] [address] Sylvie Paris, DIRECTOR OF STUDENT FINANCIAL AID.SISAL OPERATOR [address] [place] [address] 3 month virtual follow up 03/10/2025 8:00 AM EST Office Visit Cardiology [address] [place], [place] [phone] [place] [address] [place] [address] QT prolongation [R94.31] documented as of this encounter Visit Diagnoses Diagnosis Restless legs syndrome- Primary Restless legs syndrome (RLS) documented in this encounter
--- OUTSIDE RECORDS SUMMARY | 2025-01-08 07:44 | XMS_ITS | Clinical Summary ---
Author Organization [facility] Address [address] [place] [address] Care Team Providers Care Timber Setter Name Role Phone Unavailable Primary Care Provider Unavailabl e Allergies Active Allergy Reactions Criticality Noted Date Comments Codeine 02/22/2009 Penicillins 02/22/2009 Medications pregabalin (LYRICA) 50 mg capsuleIndicat ions:Restless legs syndrome Take 3 capsules by mouth daily at bedtime for 7 days, THEN 2 capsules daily at bedtime for 7 days, THEN 1 capsule daily at bedtime for 7 days. 42 capsule 12/31/19 25 025 Active buprenorphine- naloxone (SUBOXONE) 2-0.5 mg filmIndication s:Restless legs syndrome Take 1/8 film at night daily 12 film 01/02/2025 12:08 PM EDT 01/03/20 25 026 Active pregabalin (LYRICA) 200 mg capsuleIndicat ions:Restless legs syndrome Take 1 capsule by mouth once daily for 90 days. 30 capsule 2 09/16/19 25 025 Discontinued pregablin (LYRICA) 200 mg capsuleIndicat ions:Restless legs syndrome Take 1 capsule by mouth once daily for 60 days. 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, obscuring vision - Both Eyes History of myopia - Both Eyes 12/08/2013 Encounters Date Type Department Care Team Description 01/02/2025 Telephone Neurology [address] [place] [address] Alix Lakhani MD Medication Problem 12/30/2024 Orders Only Neurology [address] [place] [address] Alix Lakhani MD 12/30/2024 Orders Only Neurology [address] [place] [address] Alix Lakhani MD Restless legs syndrome (Primary Dx) 12/30/2024 Orders Only Neurology [address] [place] [address] Alix Lakhani MD 12/30/2024 Telephone Neurology [address] [place] [address] Alix Lakhani MD Patient Question 12/30/2024 Orders Only Neurology [address] [place] [address] Alix Lakhani MD Restless legs syndrome (Primary Dx) 12/26/2024 Get Medical Advice Neurology [address] [place] [address] Alix Lakhani MD Cardiology report 12/25/2024 Telephone Neurology [address] [place] [address] Alix Lakhani MD Received Outside Medical Records 12/23/2024 Orders Only Neurology [address] [place] [address] Alix Lakhani MD 12/22/2024 Get Medical Advice Neurology [address] [place] [address] Alix Lakhani MD New medication 12/21/2024 Refill Neurology [address] [place] [address] Arti Quiroga APRN.CHEESEMAKING LABORER Refill Request 11/13/2024 Telephone Neurology [address] [place] [address] Alix Lakhani MD Orders (Cardiology referral FAXED) 11/11/2024 Orders Only Neurology [address] [place] [phone] Alix Lakhani MD QT prolongation (Primary Dx) 11/10/2024 Get Medical Advice [facility] [address] [facility] [place] [phone] Alix Lakhani MD Question regarding new medication 11/05/2024 3:30 PM EDT Procedure Cardiology [address] [place] [phone] 11/05/2024 3:00 PM EDT Office Visit Neurology [address] [place] [address] Alix Lakhani MD Restless legs syndrome (Primary Dx); Iron deficiency 10/29/2024 Travel from Last 3 Months Family History Medical History Relation Comments Heart Father Hypertension Father No Ocular Disease Father Cataract Mother Cancer Sister 1 Diabetes Sister 2 Relation Status Comments Father Mother Sister 1 Sister 2 Social History Tobacco Use Types Packs/Day Years [...] is lower risk 5 05/09/2024 Data from: https://www.neighborhoodatlas.medicine.[facility].edu/. Last address used for calculation [address] [facility] 05/09/2024 Comments No Sex and Gender Information Value Date Recorded Sex Assigned at Not on file Legal Sex Female 8:25 AM EST Gender Identity Not on file Sexual Orientation Not on file Last Filed Vital Signs Vital Sign Reading Time Taken Comments Blood Pressure 140/57 11/05/2024 2:46 PM EDT Pulse 84 11/05/2024 2:46 PM EDT Temperature 36.4 C (97.6 F) 03/02/2009 7:30 AM EST Respiratory Rate 18 03/02/2009 8:28 AM EST Oxygen Saturation 99% 03/02/2009 8:28 AM EST Inhaled Oxygen Concentration - - Weight 104.3 kg (230 lb) 11/05/2024 2:46 PM EDT Height 172.7 cm (5' 7.99 ) 11/05/2024 2:46 PM ED T Body Mass Index 34.98 11/05/2024 2:46 PM EDT Plan of Treatment Upcoming Encounters Date Type Department Care Team (Late st Contact Info) Description 02/09/2025 12:00 PM EST [facility] Neurology [address] [place] [address] Sylvie Paris, IMPRESS ASSOCIATE.CHEESEMAKING LABORER [address] [place] [address] 3 month virtual follow up 03/10/2025 8:00 AM EST Office Visit Cardiology [address] [place], [place] [phone] [place] [address] [facility] [place] [address] QT prolongation [R94.31] Health Maintenance Due Date Last Done Comments Anxiety Screening 11/22/1975 Depression Screening 11/22/1975 Hepatitis C Screening 11/22/1975 DTaP,Tdap,Td Vaccine (1 - Tdap) 1976 CT Colonography 2002 Colonoscopy 2002 Diabetes Screening 2002 Fecal Occult Blood 2002 Lipid Screening 2002 Sigmoidoscopy 2002 Pneumococcal Vaccine: 50+ (1 of 1 - PCV) 11/22/2007 Shingrix Vaccine (1 of 2) 11/22/2007 Medicare Annual Wellness Visit 10/24/2022 Bone Density Screening 2022 Advance Directive Discussion 03/26/2024 Covid-19 Vaccine (3 - 2024-2 6 season) 2024 12/28/2020, 12/07/2020 Influenza Vaccine (#1) 2024 Mammogram Screening 02/18/2025 02/19/2024, 02/19/2024, 10/03/2022, Additional history exists Cologuard (FIT-DNA) 02/26/2027 02/27/2024 Colorectal Cancer Screening 02/26/2027 RSV Vaccine (1 - 1-dose 75+ series) 2032 Medical Devices Implanted Type Area Employment Appeals Examiner Device Identifier Shelf Expiration Date Model / Serial / Lot Evq-Wn-V-Kind Implant - [id number] [facility]planted:Q[facility]: [facility] Implant +[id number] / [id number] / Description:6.0 SN6AT5 Bqs-Mf-A-Kind Implant - [id number] Implanted:Qty: 1 on 03/02/2009 at [facility] Implant Left: Eye [employer] [id number] / [id number] / [id number] Description:ACRYSOF IQ TORIC LENS- [id number]--9.0 Procedures Procedure Name Priority Date/Time Associated Diagnosis Comments ECG COMPLETE Routine 11/05/2024 3:32 PM EDT Restless legs syndrome from Last 3 Months Results * ECG COMPLETE (11/05/2024 3:32 PM EDT) Pathologist [facility] Ventricular Rate 78 BPM [facility] Atrial Rate 78 BPM [facility] P-R Interval 196 ms [facility] QRS Duration 102 ms [facility] QT Interval 406 ms [facility] QTC Calculation (Bazett) 462 ms [facility] Calculated P [place] 38 degrees [facility] Calculated R [place] -10 degrees [facility] Calculated T [place] 40 degrees [facility] 11/05/2024 3:32 PM EDT Impressions [facility] - 01/05/2025 2:40 PM EDT NORMAL SINUS RHYTHM INCOMPLETE RIGHT BUNDLE BRANCH BLOCK MINIMAL VOLTAGE CRITERIA FOR LVH, MAY BE NORMAL VARIANT ( R in aVL ) BORDERLINE ECG Confirmed by MD DI, ABRAHAM ([id number]) on 01/05/2025 2:40:06 PM Narrative [facility] - 01/05/2025 2:40 PM EDT NAME : YANETH COKER PID : [id number] : 1955 Gender : Female Race : ORD : [id number] Procedure Date : Nov 05 2024 15:32:39 Edit Date : Jan 05 2025 14:40:11 Diagnosis: NORMAL SINUS RHYTHM INCOMPLETE RIGHT BUNDLE BRANCH BLOCK MINIMAL VOLTAGE CRITERIA FOR LVH, MAY BE NORMAL VARIANT ( R in aVL ) BORDERLINE ECG Confirmed by MD SEVILLA TAMANNA ([id number]) on 01/05/2025 2:40:06 PM Test Reason : Location : 314 : J14 J1-4 Overread By : MD SEVILLA TAMANNA Edited By : MD SEVILLA TAMANNA Referred By : ALIX ALVARADO Acquired by : ALEXANDER BAINS Alix Alvarado MD EKG Fin al Result [facility] [address] [place] [address] from Last 3 Months Insurance [facility] * Guarantor: Yaneth Coker Account Type Relation to Patient Date of Phone Billing Address Self Pay Self 1955 [address] [id number]
--- OUTSIDE RECORDS SUMMARY | 2025-01-08 07:44 | XMS_ITS | Encounter Summary ---
Author Organization [facility] Address [address] [place] [address] Care Team Providers Care Field Laboratory Operator Name Role Phone Genet Yost MD Primary Care Provider [phone] Beth Wang DRILL SHARPENER Unavailable [phone] Encounter Details Date Type Department Care Team (Late st Contact Info) Description 10/07/2023 Orders Only [facility] [address] [facility] [place] [address] Genet Yost MD [address] [facility] [address] [place], [place] [phone] Social History Tobacco Use Types Packs/Day Years [...] How often do you attend chur or hoahaoism services? More than 4 times per year 09/27/2022 Do you belong to any clubs o r organizations such as sabianist groups, unions, fraternal or athletic groups, or [...] Recorded Patient Health Questionnaire-2 Score 0 07/05/2023 [facility]at [facility] - Occupational Stress Questionnaire Answer [...] Office Visit [facility] 14[address] [place] [phone] Isabell Reyna NP [address] [place] [address] documented as of this encounter Visit Diagnoses Not on filedocumented in this encounter Care Teams Field Laboratory Operator Relationship Specialty Start Date End Date Genet Yost MD [address] [place], [place] [phone] PCP - General Family Medicine 09/27/22 Beth Wang NP [address] [place] [phone] PCP - ACO Reach 05/02/24 documented as of this encounter
--- OUTSIDE RECORDS SUMMARY | 2025-01-08 07:44 | XMS_ITS | Encounter Summary ---
Author Organization [facility] Address [address] [place] [address] Care Team Providers Care Answering Service Agent Name Role Phone Genet Yost MD Primary Care Provider [phone] Beth Wang CARE TRANSITIONS NURSE Unavailable [phone] Encounter Details Date Type Department Care Team (Late st Contact Info) Description 02/15/2024 [facility] [address] [place] [address] Radha Kenyon MA Welcome to Medicare preventive visit; Encounter for screening for cardiovascular disorders Social History Tobacco Use Types Packs/Day Years [...] 02/14/2024 How often do you attend chur ch or nondenominational services? More than 4 times per year [...] Recorded Patient Health Questionnaire-2 Score 0 02/15/2024 [facility] Occupat ional Health - Occupational [...] place to sleep or slept in a chcf (including now)? No 09/27/2022 Housing Stability Vital Sign Answer Gino e Recorded In the last 12 months, was t here a time when you were not able to pay the mortgage or rent on time? No 02/14/2024 In the past 12 months, how m any times have you moved where you were living? 0 02/14/2024 At any time in the past 12 m [place] [place], were you homeless or living in a chcf (including now)? No 02/14/2024 Comments Unknown Sex and Gender Information Value Date Recorded Sex Assigned at Not on file Legal Sex Female 7:39 PM EDT Gender Identity Female 06/07/2022 7:39 PM EDT Sexual Orientation Not on file documented as of this encounter Functional Status * Over the past 2 weeks, how often have you been bothered by any of the following problems? Question Answer Date of Assessment Author Little interest or pleasure in doing things Not at all 02/15/2024 8:00 AM Gayle Gabriel MA Feeling down, depressed, or hopeless Not at all 02/15/2024 8:00 AM Gayle Gabriel MA Patient Health Questionnaire-2 Score 0 02/15/2024 8:00 AM Patti Gabriel MA * Question Answer Date of Assessment Author Trouble falling or staying asleep, or sleeping too much Not at all 02/15/2024 8:00 AM Kirsten Gabriel MA Feeling tired or having little energy Not at all 02/15/2024 8:00 AM Gayle Gabriel MA Poor appetite or overeating Not at all 02/15/2024 8: 00 AM Kirsten Gabriel MA Feeling bad about yourself - or that you are a failure or have let yourself or your family down Not at all 02/15/2024 8:00 AM Gayle Gabriel MA Trouble concentrating on things, such as reading the newspaper or watching television Not at all 02/15/2024 8:00 AM Gayle Gabriel MA Moving or speaking so slowly that other people could have noticed? Or the opposite - being so fidgety or restless that you have been moving around a lot more than usual. Not at all 02/15/2024 8:00 AM Kirsten Chandler MA Thoughts that you would be better off or hurting yourself in some way Not at all 02/15/2024 8:00 AM Fela Gabriel MA Patient Health Questionnaire-9 Score 0 02/15/2024 8:00 AM Patti Gabriel MA documented as of this encounter Plan of Treatment Upcoming Encounters Date Type Department Care Team (Late st Contact Info) Description 02/23/2025 11:00 AM EST Office Visit [facility] Medicine [address] [place] [phone] Isabell Reyna NP [address] [place], [place] [phone] documented as of this encounter Procedures Procedure Name Priority Date/Time Associated Diagnosis Comments ECG 12 LEAD UNIT PERFORMED Routine 02/15/2024 4:55 PM EST Welcome to Medicare preventive visit Encounter for screening for cardiovascular disorders documented in this encounter Results * ECG 12 lead unit performed (02/15/2024 4:55 PM EST) Isabell Reyna NP ECG ORDERABLES Final Result documented in this encounter Visit Diagnoses Diagnosis Welcome to Medicare preventive visit Encounter for screening for cardiovascular disorders documented in this encounter Additional Health Concerns Assessment Noted Time PHQ-9 Depression Total Score: 0 02/15/20 24 8:00 AM EST documented as of this encounter Care Teams Answering Service Agent Relationship Specialty Start Date End Date Genet Yost MD [address] [place] [address] PCP - General Family Medicine 09/27/22 Beth Wang NP [address] [facility] 1 [place] [address] PCP - ACO Reach 05/02/24 documented as of this encounter
--- OUTSIDE RECORDS SUMMARY | 2025-01-08 07:44 | XMS_ITS | Encounter Summary ---
Author Organization [facility] Address [address] [place] [address] Care Team Providers Care Shirring Tender Name Role Phone Unavailable Primary Care Provider Unavailabl e Source Comments In the event this information is protected by the Federal Confidentiality of Alcohol and Drug AbusePatient Records regulations: The Federal rules restrict any use of the information to criminally investigate or prosecute any alcohol or drug abuse patient.[facility] Reason for Visit * Reason Comments Medication Problem Encounter Details Date Type Department Care Team (Late st Contact Info) Description 01/02/2025 Telephone Neurology [facility] [place] [id number] Jace Corbin MD [address] [place] [address]. [place], [place] [id number] Medication Problem Social History Tobacco Use Types Packs/Day Years [...] is lower risk 5 05/09/2024 Data from: https://www.neighborhoodatlas.[facility]/. Last address used for calculation [address] 05/09/2024 Comments No Sex and Gender Information Value Date Recorded Sex Assigned at Not on file Legal Sex Female 8:25 AM EST Gender Identity Not on file Sexual Orientation Not on file documented as of this encounter Miscellaneous Notes * Telephone Encounter - Brina [place] RN - 01/02/2025 11:14 AM EDT Called and spoke with the patient to confirmed which pharmacy she prefers to use. She said [facility] was giving her issues with the suboxone so she called around and [facility] has the medication and called her that the prescription is ready. Patient said she was on her way to [facility] pharmacy to get her suboxone and said it will be easier keeping the refills at this pharmacy. Called [facility] pharmacy and Hernandez the instrumentation engineering technician said it shows the order was discontinued. * Telephone Encounter - Judith Sultana - 01/02/2025 10:52 AM EDT SLEEP PHONE Name of caller: Sara Relationship to patient : Provider In-state or oik-jb-hupis patient: In-State Was permission obtained from patient? Yes Patient identified by Name and Date of . ( Yaneth Villarreal Tashi, 1955). Yes Reason for Call : Called the office requesting to clarify the amount of films for the suboxone. Want to verify if the amount 12 film/96 day supply Number to return call Okay to leave a message ? Yes Thank you calling [facility]. You will receive a return call within 3 business days. If you feel that this is an urgent issue and needs immediate attention, it is recommended that you contact your primary care provider office or proceed to your Primary Care Provider, nearest [facility], or Emergency Room for evaluation/treatment. documented in this encounter Plan of Treatment Upcoming Encounters Date Type Department Care Team (Late st Contact Info) Description 02/09/2025 12:00 PM EST [facility] [address] [address] Sylvie Paris, AALIYAH.PRINCIPAL TECHNICAL WRITER [address] [place] [address] 3 month virtual follow up 03/10/2025 8:00 AM EST Office Visit Cardiology [address] [place] [address] [place] [address] [place], [place] [phone] QT prolongation [R94.31] documented as of this encounter Visit Diagnoses Not on filedocumented in this encounter
--- OUTSIDE RECORDS SUMMARY | 2025-01-08 07:44 | XMS_ITS | Encounter Summary ---
Author Organization [facility] Address [address] [place] [address] Care Team Providers Care Munitions Handler Supervisor Name Role Phone Genet Yost MD Primary Care Provider [phone] Beth Wang DAIRY FEED WORKER Unavailable [phone] Reason for Visit * Reason Comments Med Refill Encounter Details Date Type Department Care Team (Late st Contact Info) Description 02/18/2023 Refill [facility] [address] [place] [address] Beth Wang DAIRY FEED WORKER [address] [facility] [place] [phone] Primary hypertension Social History Tobacco Use Types [...] often do you attend chur ch or amish services? More than 4 times per year 09/27/2022 Do you belong to any clubs o r organizations such as congregational groups, unions, fraternal or athletic groups, or [...] Recorded Patient Health Questionnaire-2 Score 0 09/28/2022 [facility] - [facility] Stress Questionnaire Answer Date [...] place to sleep or slept in a long term (including now)? No 09/27/2022 Comments Unknown Sex and Gender Information Value Date Recorded Sex Assigned at Not on file Legal Sex Female 7:39 PM EDT Gender Identity Female 06/07/2022 7:39 PM EDT Sexual Orientation Not on file documented as of this encounter Miscellaneous Notes * Telephone Encounter - Beth Wang NP - 02/20/2023 12:54 PM EST Refill sent, but needs appointment. documented in this encounter Plan of Treatment Upcoming Encounters Date Type Department Care Team (Late st Contact Info) Description 02/23/2025 11:00 AM EST Office Visit [facility] [address] [facility] [place] [address] Isabell Reyna NP [address] [facility] [place] [address] documented as of this encounter Visit Diagnoses Diagnosis Primary hypertension Unspecified essential hypertension documented in this encounter Care Teams Munitions Handler Supervisor Relationship Specialty Start Date End Date Genet Yost MD [address] [facility] [address] [place], [place] [phone] PCP - General Family Medicine 09/27/22 Beth Wang NP [address] [phone] PCP - ACO Reach 05/02/24 documented as of this encounter
--- OUTSIDE RECORDS SUMMARY | 2025-01-08 07:44 | XMS_ITS | Encounter Summary ---
Author Organization [facility] Address [address] [place] [address] Care Team Providers Care Tread Tuber Machine Operator Name Role Phone Unavailable Primary Care Provider Unavailabl e Source Comments In the event this information is protected by the Federal Confidentiality of Alcohol and Drug AbusePatient Records regulations: The Federal rules restrict any use of the information to criminally investigate or prosecute any alcohol or drug abuse patient.[facility] Reason for Referral * Outpatient Procedure (Routine) - New Request Specialty Diagnoses / Procedures Referred By Contac t [facility] To [facility] Diagnoses Restless legs syndrome Procedures ECG COMPLETE ECG ROUTINE ECG W/LEAST 12 LDS W/I&R Jace Corbin MD [address] [place] [address] Phone: tel: fax: [facility] [place] [address] [place] [address] Referral ID Status Reason Start Date Expiration Date Visits Requested Visits Authorized [id number] New Request Auto-Generat ed Referral 04/01/2025 12/30/2025 1 1 Encounter Details Date Type Department Care Team (Late st Contact Info) Description 12/30/2024 Orders Only Neurology [address] [place] [address] Jace Corbin MD [address] [place] [address] Restless legs syndrome (Primary Dx) Social History [...] is lower risk 5 05/09/2024 Data from: https://www.neighborhoodatlas.medicine.[facility]/. Last address used for calculation [address] [facility] 05/09/2024 Comments No Sex and Gender Information Value Date Recorded Sex Assigned at Not on file Legal Sex Female 8:25 AM EST Gender Identity Not on file Sexual Orientation Not on file documented as of this encounter Progress Notes * Jace Corbin MD - 12/30/2024 10:51 AM EDT Images from the original note were not included. Above is the cardiology's note. I will taper her off pregabalin by cutting down 50 mg every week, at the same time, will start her on suboxone at 1/8 film nightly first and will titrate up later once she is completely off pregabalin. Will need to check EKG 3 months from now documented in this encounter Plan of Treatment Upcoming Encounters Date Type Department Care Team (Late st Contact Info) Description 02/09/2025 12:00 PM EST [facility] Neurology [address] [place] [address] Sylvie Paris, DINING ROOM CAPTAIN.SCRAP STRIPPER HAND [address] [place] [address] 3 month virtual follow up 03/10/2025 8:00 AM EST Office Visit Cardiology [address] [place], [place] [phone] [place] [address] [place], [place] [phone] QT prolongation [R94.31] Scheduled Orders Name Type Priority Associated Diagnoses Orde r Schedule ECG COMPLETE ECG Routine Restless legs syndrome Expected: 04/01/2025, Expires: 12/30/2025 documented as of this encounter Visit Diagnoses Diagnosis Restless legs syndrome- Primary Restless legs syndrome (RLS) documented in this encounter
--- OUTSIDE RECORDS SUMMARY | 2025-01-08 07:44 | XMS_ITS | Encounter Summary ---
Author Organization [facility] Address [address] [place] [address] Care Team Providers Care Miller Head Name Role Phone Genet Yost MD Primary Care Provider [phone] Beth Wang BRICKLAYER Unavailable [phone] Encounter Details Date Type Department Care Team (Late st Contact Info) Description 12/03/2022 [facility] [address] [place] [address] Beth Wang NP [address] [facility] 1 [place] [address] Social History Tobacco Use Types Packs/Day Years [...] How often do you attend chur or baptism services? More than 4 times per year 09/27/2022 Do you belong to any clubs o r organizations such as taoism groups, unions, fraternal or athletic groups, or [...] Recorded Patient Health Questionnaire-2 Score 0 09/28/2022 [facility] of Occupat ional Health - Occupational Stress [...] place to sleep or slept in a custodial (including now)? No 09/27/2022 Comments Unknown Sex [...] Office Visit [facility] [address] [place] [address] Isabell Reyna NP [address] [place], [place] [phone] documented as of this encounter Visit Diagnoses Not on filedocumented in this encounter Care Teams Miller Head Relationship Specialty Start Date End Date Genet Yost MD [address] [place], [place] [phone] PCP - General Family Medicine 09/27/22 Beth Wang NP [address] [place] [address] [place] [phone] PCP - ACO Reach 05/02/24 documented as of this encounter
--- OUTSIDE RECORDS SUMMARY | 2025-01-08 07:44 | XMS_ITS | Encounter Summary ---
Author Organization [facility] Address [address] [place] [address] Care Team Providers Care Counselor Marriage And Family Name Role Phone Unavailable Primary Care Provider Unavailabl e Source Comments In the event this information is protected by the Federal Confidentiality of Alcohol and Drug AbusePatient Records regulations: The Federal rules restrict any use of the information to criminally investigate or prosecute any alcohol or drug abuse patient.[facility] Encounter Details Date Type Department Care Team (Late st Contact Info) Description 12/30/2024 Orders Only Neurology [address] [place] [address] [place] [address] [place] [address]. [place] [phone] Social History Tobacco Use Types Packs/Day Years [...] is lower risk 5 05/09/2024 Data from: https://www.neighborhoodatlas.medicine.[facility]/. Last address used for calculation [address] 05/09/2024 Comments No Sex and Gender Information Value Date Recorded Sex Assigned at Not on file Legal Sex Female 8:25 AM EST Gender Identity Not on file Sexual Orientation Not on file documented as of this encounter Progress Notes * aJce Corbin MD - 12/30/2024 2:14 PM EDT Talked to the patient over the phone about tapering off lyrica and started on suboxone. She needs to monitor if she has reaction to suboxone, if so, she needs to stop it and goes to the ER. Previously had hives with codeine. documented in this encounter Plan of Treatment Upcoming Encounters Date Type Department Care Team (Late st Contact Info) Description 02/09/2025 12:00 PM EST [facility] Neurology [address] [address] Sylvie Paris, TURNING SANDER OPERATOR.CIVIL ENGINEERING ASSISTANT [address] [place] [address] 3 month virtual follow up 03/10/2025 8:00 AM EST Office Visit Cardiology [address] [facility] [address] [place], [place] [phone] [place] [address] [place] [address] QT prolongation [R94.31] documented as of this encounter Visit Diagnoses Not on filedocumented in this encounter
--- OUTSIDE RECORDS SUMMARY | 2025-01-08 07:44 | XMS_ITS | Encounter Summary ---
Author Organization [facility] Address [address] [facility] [place] [address] Care Team Providers Care Photo Lab Technician Name Role Phone Genet Yost MD Primary Care Provider [phone] Beth Wang ROCK DUSTER Unavailable [phone] Reason for Visit * Reason Comments Med Refill Encounter Details Date Type Department Care Team (Late st Contact Info) Description 04/19/2024 Refill [facility] [address] [facility] [place] [address] Isabell Reyna NP [address] [facility] [address] [place], [place] [phone] Primary hypertension Social History Tobacco Use Types [...] week 02/14/2024 How often do you attend [facility] or caodaism services? More than 4 times per year [...] Recorded Patient Health Questionnaire-2 Score 0 02/15/2024 [facility] of Occupat ional Health - Occupational Stress [...] place to sleep or slept in a jail (including now)? No 09/27/2022 Housing Stability Vital Sign Answer Gino e Recorded In the last 12 months, was t here a time when you were not able to pay the mortgage or rent on time? No 02/14/2024 In the past 12 months, how m any times have you moved where you were living? 0 02/14/2024 At any time in the past 12 m [facility], were you homeless or living in a jail (including now)? No 02/14/2024 Comments Unknown Sex and Gender Information Value Date Recorded Sex Assigned at Not on file Legal Sex Female 7:39 PM EDT Gender Identity Female 06/07/2022 7:39 PM EDT Sexual Orientation Not on file documented as of this encounter Miscellaneous Notes * Telephone Encounter - Radha Kenyon MA - 04/21/2024 9:15 AM EST Approving, but needs appt for additional refills. documented in this encounter Plan of Treatment Upcoming Encounters Date Type Department Care Team (Late st Contact Info) Description 02/23/2025 11:00 AM EST [facility] [address] [facility] [place] [phone] Isabell Reyna NP [address] [facility] [address] [place] [phone] documented as of this encounter Visit Diagnoses Diagnosis Primary hypertension Unspecified essential hypertension documented in this encounter Additional Health Concerns Assessment Noted Time PHQ-9 Depression Total Score: 0 02/15/20 24 8:00 AM EST documented as of this encounter Care Teams Photo Lab Technician Relationship Specialty Start Date End Date Genet Yost MD [address] [facility] [address] [place] [phone] PCP - General Family Medicine 09/27/22 Beth Wang NP [address] [facility] 1 [place] [phone] PCP - ACO Reach 05/02/24 documented as of this encounter
--- OUTSIDE RECORDS SUMMARY | 2025-01-08 07:44 | XMS_ITS | Encounter Summary ---
Author Organization [facility] Address [address] [facility] [place] [address] Care Team Providers Care Nurses' Association Counselor Name Role Phone Genet Yost MD Primary Care Provider [phone] Beth Wang VETERINARY DENTIST Unavailable [phone] Reason for Visit * Reason Onset Date Comments Med Refill 2024 Encounter Details Date Type Department Care Team (Late st Contact Info) Description 2024 Refill [facility] [address] [facility] [address] [facility] [place] [address] Isabell Reyna NP [address] [place] [address] Primary hypertension Social History Tobacco Use Types [...] How often do you attend chur or druze services? More than 4 times per year 02/14/2024 Do you belong to any clubs o r organizations such as protestant groups, unions, fraternal or athletic groups, or [...] Recorded Patient Health Questionnaire-2 Score 0 02/15/2024 [facility] of Occupat ional Health - Occupational Stress [...] place to sleep or slept in a mcc (including now)? No 09/27/2022 Housing Stability Vital Sign Answer Gino e Recorded In the last 12 months, was t here a time when you were not able to pay the mortgage or rent on time? No 02/14/2024 In the past 12 months, how m any times have you moved where you were living? 0 02/14/2024 At any time in the past 12 m [facility], were you homeless or living in a mcc (including now)? No 02/14/2024 Comments Unknown Sex [...] EST Office Visit [facility] [address] [place] [phone] Isabell Reyna NP [address] [place], [place] [phone] documented as of this encounter Visit Diagnoses Diagnosis Primary hypertension Unspecified essential hypertension documented in this encounter Additional Health Concerns Assessment Noted Time PHQ-9 Depression Total Score: 0 02/15/20 24 8:00 AM EST documented as of this encounter Care Teams Nurses' Association Counselor Relationship Specialty Start Date End Date Genet Yost MD [address] [place] [address] PCP - General Family Medicine 09/27/22 Beth Wang NP [address] [facility] 1 [place] [address] PCP - ACO Reach 05/02/24 documented as of this encounter
--- OUTSIDE RECORDS SUMMARY | 2025-01-08 07:44 | XMS_ITS | Encounter Summary ---
Author Organization [facility] Address [address] [place] [address] Care Team Providers Care Liquefier Name Role Phone Genet Yost MD Primary Care Provider [phone] Beth Wang HANDS AND DIAL INSPECTOR Unavailable [phone] Encounter Details Date Type Department Care Team (Late st Contact Info) Description 06/19/2023 Orders Only [facility] [address] [facility] [place] [address] Genet Yost MD [address] [facility] [place], [place] [address] Social History Tobacco Use Types Packs/Day Years [...] How often do you attend chur or orthodox services? More than 4 times per year 09/27/2022 Do you belong to any clubs o r organizations such as confucianism groups, unions, fraternal or athletic groups, or [...] Recorded Patient Health Questionnaire-2 Score 0 09/28/2022 [facility] - Occupational [...] place to sleep or slept in a long-term (including now)? No 09/27/2022 Comments Unknown Sex [...] Office Visit [facility] [address] [facility] [place] [address] Isabell Reyna NP [address] [facility] [place] [address] documented as of this encounter Procedures Procedure Name Priority Date/Time Associated Diagnosis Comments HM COLONOSCOPY Routine 05/24/2017 8:57 PM EST documented in this encounter Results * Hm Colonoscopy (05/24/2017 8:57 PM EST) Anatomical Region Laterality Modality Other Genet Yost MD HEALTH MAINTENANCE Final Resu lt documented in this encounter Visit Diagnoses Not on filedocumented in this encounter Care Teams Liquefier Relationship Specialty Start Date End Date Genet Yost MD [address] [facility] [address] [place], [place] [phone] PCP - General Family Medicine 09/27/22 Beth Wang NP [address] [address] PCP - ACO Reach 05/02/24 documented as of this encounter
--- OUTSIDE RECORDS SUMMARY | 2025-01-08 07:44 | XMS_ITS | Encounter Summary ---
Author Organization [facility] Address [address] [place] [address] Care Team Providers Care Ultrasound Technol Name Role Phone Genet Yost MD Primary Care Provider [phone] Beth Wang STATE FARM AGENT TEAM MEMBER Unavailable [phone] Reason for Visit * Reason Comments Med Refill Encounter Details Date Type Department Care Team (Late st Contact Info) Description 01/18/2023 Refill [facility] [address] [place] [address] Beth Wang STATE FARM AGENT TEAM MEMBER [address] [facility] [place] [phone] Primary hypertension Social History Tobacco Use Types [...] often do you attend chur ch or evangelical services? More than 4 times per year 09/27/2022 Do you belong to any clubs o r organizations such as tenriism groups, unions, fraternal or athletic groups, or [...] Recorded Patient Health Questionnaire-2 Score 0 09/28/2022 [facility] - Occupational Stress Questionnaire Answer [...] place to sleep or slept in a halfway (including now)? No 09/27/2022 Comments Unknown Sex [...] Office Visit [facility] [address] [place] [address] Isabell Reyna NP [address] [place] [address] documented as of this encounter Visit Diagnoses Diagnosis Primary hypertension Unspecified essential hypertension documented in this encounter Care Teams Ultrasound Technol Relationship Specialty Start Date End Date Genet Yost MD [address] [place], [place] [phone] PCP - General Family Medicine 09/27/22 Beth Wang NP [address] [place] [address] PCP - ACO Reach 05/02/24 documented as of this encounter
--- OUTSIDE RECORDS SUMMARY | 2025-01-08 07:44 | XMS_ITS | Encounter Summary ---
Author Organization [facility] Address [address] [place] [address] Care Team Providers Care Rheumatology Nurse Name Role Phone Genet Yost MD Primary Care Provider [phone] Beth Wang COST ENGINEER Unavailable [phone] Reason for Visit * Reason Comments Med Refill Encounter Details Date Type Department Care Team (Late st Contact Info) Description 10/06/2023 Refill [facility] [address] [place] [address] Beth Wang COST ENGINEER 1912 [facility] 1 [place] [phone] Restless leg syndrome Social History Tobacco Use [...] How often do you attend chur or amish services? More than 4 times per year 09/27/2022 Do you belong to any clubs o r organizations such as sikhism groups, unions, fraternal or athletic groups, or [...] Recorded Patient Health Questionnaire-2 Score 0 07/05/2023 [facility] - Occupational Stress Questionnaire [...] place to sleep or slept in a fdc (including now)? No 09/27/2022 Comments Unknown Sex and Gender Information Value Date Recorded Sex Assigned at Not on file Legal Sex Female 7:39 PM EDT Gender Identity Female 06/07/2022 7:39 PM EDT Sexual Orientation Not on file documented as of this encounter Miscellaneous Notes * Telephone Encounter - Genet Yost MD - 10/07/2023 8:57 PM EDT Approving, but needs appt for additional refills. documented in this encounter Plan of Treatment Upcoming Encounters Date Type Department Care Team (Late st Contact Info) Description 02/23/2025 11:00 AM EST Office Visit [facility] [address] [facility] [place] [address] Isabell Reyna NP [address] [place] [address] documented as of this encounter Visit Diagnoses Diagnosis Restless leg syndrome Restless legs syndrome (RLS) documented in this encounter Care Teams Rheumatology Nurse Relationship Specialty Start Date End Date Genet Yost MD [address] [place] [address] PCP - General Family Medicine 09/27/22 Beth Wang NP [address] [address] PCP - ACO Reach 05/02/24 documented as of this encounter
--- OUTSIDE RECORDS SUMMARY | 2025-01-08 07:44 | XMS_ITS | Encounter Summary ---
Author Organization [facility] Address [address] [place] [place] [address] Care Team Providers Care Assistant Program Director Name Role Phone Genet Yost MD Primary Care Provider [phone] Beth Wang STEREO OPERATOR Unavailable [phone] Encounter Details Date Type Department Care Team (Late st Contact Info) Description 05/08/2024 Telephone [facility] [address] [place] [address] Beth Wang NP [address] [facility] 1 [place] [address] Social History Tobacco Use Types Packs/Day Years [...] week 02/14/2024 How often do you attend [facility] or roman catholic services? More than 4 times per year 02/14/2024 Do you belong to any clubs o r organizations such as christian groups, unions, fraternal or athletic groups, or [...] Recorded Patient Health Questionnaire-2 Score 0 02/15/2024 [facility] Occupat ional [facility] - Occupational Stress [...] a care home (including now)? No 09/27/2022 Housing Stability Vital Sign Answer Gino e Recorded In the last 12 months, was t here a time when you were not able to pay the mortgage or rent on time? No 02/14/2024 In the past 12 months, how m any times have you moved where you were living? 0 02/14/2024 At any time in the past 12 m [facility], were you homeless or living in a care home (including now)? No 02/14/2024 Comments Unknown Sex and Gender Information Value Date Recorded Sex Assigned at Not on file Legal Sex Female 7:39 PM EDT Gender Identity Female 06/07/2022 7:39 PM EDT Sexual Orientation Not on file documented as of this encounter Miscellaneous Notes * Telephone Encounter - Elizabeth Green - 05/08/2024 12:49 PM EST Thank you, called pt and informed her, she was appreciative for information. * Telephone Encounter - Elizabeth Green - 05/08/2024 12:36 PM EST Pt is calling asking how long she has been on ropinirole 0.5? I can only see as far back as last year, but she's thinking its been since sometime in 2021. Are you able to see a date? She believes youwere original prescriber. documented in this encounter Plan of Treatment Upcoming Encounters Date Type Department Care Team (Late st Contact Info) Description 02/23/2025 11:00 AM EST Office Visit [facility] [address] [place] [address] Isabell Reyna NP [address] [place], [place] [phone] documented as of this encounter Visit Diagnoses Not on filedocumented in this encounter Additional Health Concerns Assessment Noted Time PHQ-9 Depression Total Score: 0 02/15/20 24 8:00 AM EST documented as of this encounter Care Teams Assistant Program Director Relationship Specialty Start Date End Date Genet Yost MD [address] [place], [place] [phone] PCP - General Family Medicine 09/27/22 Beth Wang NP [address] [facility] 1 [place] [address] PCP - ACO Reach 05/02/24 documented as of this encounter
--- OUTSIDE RECORDS SUMMARY | 2025-01-08 07:44 | XMS_ITS | Encounter Summary ---
Author Organization [facility] Address [address] [place] [address] Care Team Providers Care Measurement Operator Name Role Phone Unavailable Primary Care Provider Unavailabl e Source Comments In the event this information is protected by the Federal Confidentiality of Alcohol and Drug AbusePatient Records regulations: The Federal rules restrict any use of the information to criminally investigate or prosecute any alcohol or drug abuse patient.[facility] Encounter Details Date Type Department Care Team (Late st Contact Info) Description 12/26/2024 Get Medical Advice Neurology [address] [place] [phone] Jace Corbin MD [address] [facility] [place] [address] Cardiology report Social History Tobacco Use Types Packs/Day Years [...] is lower risk 5 05/09/2024 Data from: https://www.neighborhoodatlas.[facility] [place]/. Last address used for calculation [address] 05/09/2024 Comments No Sex and Gender Information Value Date Recorded Sex Assigned at Not on file Legal Sex Female 8:25 AM EST Gender Identity Not on file Sexual Orientation Not on file documented as of this encounter Miscellaneous Notes * Telephone Encounter - Rico Negrete RN - 12/29/2024 4:43 PM EDT [facility] message sent to provider to please advise. * Telephone Encounter - Rico Negrete RN - 12/26/2024 10:45 AM EDT Message routed to provider to please advise. documented in this encounter Plan of Treatment Upcoming Encounters Date Type Department Care Team (Late st Contact Info) Description 02/09/2025 12:00 PM EST [facility] Neurology [address] [place], [place] [phone] Sylvie Paris, TAXICAB DISPATCHER.COSMETICIAN APPRENTICE [address] [place] [address] 3 month virtual follow up 03/10/2025 8:00 AM EST Office Visit Cardiology [address] [place], [place] [phone] [place] [address] [place] [address] QT prolongation [R94.31] documented as of this encounter Visit Diagnoses Not on filedocumented in this encounter
--- OUTSIDE RECORDS SUMMARY | 2025-01-08 07:44 | XMS_ITS | Encounter Summary ---
Author Organization [facility] Address [address] [place] [address] Care Team Providers Care Wheel Press Operator Name Role Phone Genet Yost MD Primary Care Provider [phone] Beth Wang FRONT MAKER LOCKSTITCH Unavailable [phone] Reason for Visit * Reason Onset Date Comments Med Refill 10/23/2023 Encounter Details Date Type Department Care Team (Late st Contact Info) Description 10/23/2023 [facility] [address] [place] [address] Beth Wang FRONT MAKER LOCKSTITCH 1912 [facility] 1 [place] [address] Primary hypertension Social History Tobacco Use Types [...] often do you attend chur ch or oriental orthodox services? More than 4 times per [...] Recorded Patient Health Questionnaire-2 Score 0 07/05/2023 [facility] [place] - Occupational Stress Questionnaire Answer Date Recorded [...] in a jail (including now)? No 09/27/2022 Comments Unknown Sex [...] 02/23/2025 11:00 AM EST Office Visit [facility] [address] [place] [address] Isabell Reyna NP [address] [place], [place] [phone] documented as of this encounter Visit Diagnoses Diagnosis Primary hypertension Unspecified essential hypertension documented in this encounter Care Teams Wheel Press Operator Relationship Specialty Start Date End Date Genet Yost MD [address] [place], [place] [phone] PCP - General Family Medicine 09/27/22 Beth Wang NP [address] [facility] 1 [place] [address] PCP - ACO Reach 05/02/24 documented as of this encounter
--- OUTSIDE RECORDS SUMMARY | 2025-01-08 07:44 | XMS_ITS | Encounter Summary ---
Author Organization [facility] Address [address] [place] [address] Care Team Providers Care Strap Stitcher Name Role Phone Genet Yost MD Primary Care Provider Beth Wang NETWORK CONTRACT MANAGER Unavailable [phone] Encounter Details Date Type Department Care Team (Late st Contact Info) Description 07/16/2024 Orders Only [facility] [address] [place] [place] [address] Isabell Reyna NP [address] [place], [place] [phone] Social History Tobacco Use Types Packs/Day Years [...] attend [facility] or anabaptist services? More than 4 times per year [...] Recorded Patient Health Questionnaire-2 Score 0 02/15/2024 [facility] Occupat ional Health - Occupational [...] place to sleep or slept in a residential (including now)? No 09/27/2022 Housing Stability Vital Sign Answer Gino e Recorded In the last 12 months, was t here a time when you were not able to pay the mortgage or rent on time? No 02/14/2024 In the past 12 months, how m any times have you moved where you were living? 0 02/14/2024 At any time in the past 12 m [facility], were you homeless or living in a residential (including now)? No 02/14/2024 Comments Unknown Sex [...] EST Office Visit [facility] [address] [facility] [place] [address] Isabell Reyna NP [address] [place] [address] documented as of this encounter Visit Diagnoses Not on filedocumented in this encounter Additional Health Concerns Assessment Noted Time PHQ-9 Depression Total Score: 0 02/15/20 24 8:00 AM EST documented as of this encounter Care Teams Strap Stitcher Relationship Specialty Start Date End Date Genet Yost MD [address] [place] [address] PCP - General Family Medicine 09/27/22 Beth Wang NP [facility] [place] [address] [phone] PCP - ACO Reach 05/02/24 documented as of this encounter
--- OUTSIDE RECORDS SUMMARY | 2025-01-08 07:44 | XMS_ITS | Encounter Summary ---
Author Organization [facility] Address [address] [place] [address] Care Team Providers Care Package Delivery Room Service Runner Name Role Phone Unavailable Primary Care Provider Unavailabl e Source Comments In the event this information is protected by the Federal Confidentiality of Alcohol and Drug AbusePatient Records regulations: The Federal rules restrict any use of the information to criminally investigate or prosecute any alcohol or drug abuse patient.[facility] Reason for Visit * Reason Comments Received Outside Medical Records Encounter Details Date Type Department Care Team (Late st Contact Info) Description 12/25/2024 Telephone Neurology [facility] [place] [phone] Jace Corbin MD [facility]0 [facility]. [place], [place] [phone] Received Outside Medical Records Social History Tobacco Use Types Packs/Day Years [...] is lower risk 5 05/09/2024 Data from: https://www.neighborhoodatlas.medicine.[facility]/. Last address used for calculation [address] 05/09/2024 Comments No Sex and Gender Information Value Date Recorded Sex Assigned at Not on file Legal Sex Female 8:25 AM EST Gender Identity Not on file Sexual Orientation Not on file documented as of this encounter Miscellaneous Notes * Telephone Encounter - Rico Negrete RN - 12/25/2024 4:16 PM EDT [facility] cardiology notes routed to provider for review in another encounter. * Telephone Encounter - Judith Sultana - 12/25/2024 4:06 PM EDT Received OV notes [facility], [facility]. Indexed to the chart documented in this encounter Plan of Treatment Upcoming Encounters Date Type Department Care Team (Late st Contact Info) Description 02/09/2025 12:00 PM EST [facility] Neurology [address] [place] [address] Sylvie Paris, ICT ANALYST.DIRECTOR DERMATOLOGY [address] [place] [address] 3 month virtual follow up 03/10/2025 8:00 AM EST Office Visit Cardiology [address] [place] [address] [place] [address] [place] [address] QT prolongation [R94.31] documented as of this encounter Visit Diagnoses Not on filedocumented in this encounter
--- OUTSIDE RECORDS SUMMARY | 2025-01-08 07:44 | XMS_ITS | Encounter Summary ---
Author Organization [facility] Address [address] [place] [address] Care Team Providers Care Travel Writer Name Role Phone Unavailable Primary Care Provider Unavailabl e Source Comments In the event this information is protected by the Federal Confidentiality of Alcohol and Drug AbusePatient Records regulations: The Federal rules restrict any use of the information to criminally investigate or prosecute any alcohol or drug abuse patient.[facility] Encounter Details Date Type Department Care Team (Late st Contact Info) Description 12/30/2024 Orders Only Neurology [address] [place] [address] [place] [address] [place] [address]. [place] [phone] Social History Tobacco Use Types Packs/Day Years [...] is lower risk 5 05/09/2024 Data from: https://www.neighborhoodatlas.medicine.[facility].edu/. Last address used for calculation [address] [...] Info) Description 02/09/2025 12:00 PM EST [facility] Neurology [address] [facility] [address] Sylvie Paris, TIMBER SIZER OPERATOR.SOLAR MECHANICAL ENGINEER [address] [place] [address] 3 month virtual follow up 03/10/2025 8:00 AM EST Office Visit Cardiology [address] [facility] [place] [address] [place] [address] [place] [address] QT prolongation [R94.31] documented as of this encounter Visit Diagnoses Not on filedocumented in this encounter
--- OUTSIDE RECORDS SUMMARY | 2025-01-08 07:44 | XMS_ITS | Encounter Summary ---
Author Organization [facility] Address [address] [place] [address] Care Team Providers Care Labor Expediter Name Role Phone Genet Yost MD Primary Care Provider [phone] Beth Wang PHLEBOTOMY SUPERVISOR Unavailable [phone] Reason for Visit * Reason Comments Med Refill Encounter Details Date Type Department Care Team (Late st Contact Info) Description 01/25/2023 Refill [facility] [address] [place] [address] Beth Wang PHLEBOTOMY SUPERVISOR 1912 [facility] 1 [place] [address] Restless leg syndrome Social History Tobacco Use [...] often do you attend chur ch or latter-day services? More than 4 times per year [...] Recorded Patient Health Questionnaire-2 Score 0 09/28/2022 [facility] - Occupational Stress Questionnaire Answer Date Recorded [...] 02/23/2025 11:00 AM EST Office Visit [facility] 14[address] [place] [address] Isabell Reyna NP [address] [place], [place] [address] documented as of this encounter Visit Diagnoses Diagnosis Restless leg syndrome Restless legs syndrome (RLS) documented in this encounter Care Teams Labor Expediter Relationship Specialty Start Date End Date Genet Yost MD [address] [place], [place] [phone] PCP - General Family Medicine 09/27/22 Beth Wang NP [address] [place] [address] [place] [address] PCP - ACO Reach 05/02/24 documented as of this encounter
--- OUTSIDE RECORDS SUMMARY | 2025-01-08 07:44 | XMS_ITS | Encounter Summary ---
Author Organization [facility] Address [address] [facility] [place] [address] Care Team Providers Care Trade Clerk Name Role Phone Genet Yost MD Primary Care Provider [phone] Beth Wang CANVAS MARKER Unavailable [phone] Encounter Details Date Type Department Care Team (Late st Contact Info) Description 08/07/2024 Abstract [facility] [address] [facility] [place] [address] Isabell Reyna NP [address] [facility] [place] [place], [place] [phone] Social History Tobacco Use Types Packs/Day Years [...] week 02/14/2024 How often do you attend [facility] or sabianism services? More than 4 times per year [...] Recorded Patient Health Questionnaire-2 Score 0 02/15/2024 [facility] of Occupat ional Health - [...] in a half-way (including now)? No 09/27/2022 Housing Stability Vital Sign Answer Gino e Recorded In the last 12 months, was t here a time when you were not able to pay the mortgage or rent on time? No 02/14/2024 In the past 12 months, how m any times have you moved where you were living? 0 02/14/2024 At any time in the past 12 m [facility], were you homeless or living in a half-way (including now)? No 02/14/2024 Comments Unknown Sex [...] EST Office Visit [facility] [address] [place] [address] Isabell Reyna NP [address] [place] [address] documented as of this encounter Visit Diagnoses Not on filedocumented in this encounter Additional Health Concerns Assessment Noted Time PHQ-9 Depression Total Score: 0 02/15/20 24 8:00 AM EST documented as of this encounter Care Teams Trade Clerk Relationship Specialty Start Date End Date Genet Yost MD [address] [place] [address] PCP - General Family Medicine 09/27/22 Beth aWng NP [address] [place] [phone] PCP - ACO Reach 05/02/24 documented as of this encounter
--- OUTSIDE RECORDS SUMMARY | 2025-01-08 07:44 | XMS_ITS | Encounter Summary ---
Author Organization [facility] Address [address] [place] [id number] Care Team Providers Care Finance Admin Name Role Phone Unavailable Primary Care Provider Unavailabl e Source Comments In the event this information is protected by the Federal Confidentiality of Alcohol and Drug AbusePatient Records regulations: The Federal rules restrict any use of the information to criminally investigate or prosecute any alcohol or drug abuse patient.[facility] Reason for Visit * Reason Comments Patient Question Encounter Details Date Type Department Care Team (Late st Contact Info) Description 12/30/2024 Telephone Neurology [facility]0 [place] [id number] Jace Corbin MD [address] [place] [address]. [place], [place] [id number] Patient Question Social History Tobacco Use Types Packs/Day Years [...] is lower risk 5 05/09/2024 Data from: https://www.neighborhoodatlas.[facility]/. Last address used for calculation [address] 05/09/2024 Comments No Sex and Gender Information Value Date Recorded Sex Assigned at Not on file Legal Sex Female 8:25 AM EST Gender Identity Not on file Sexual Orientation Not on file documented as of this encounter Miscellaneous Notes * Telephone Encounter - Rico Negrete RN - 12/30/2024 3:53 PM EDT [employer] message sent to patient. * Telephone Encounter - Rico Negrete RN - 12/30/2024 12:08 PM EDT Pregabalin 50mg capsule order pended, awaiting provider review & signature. * Telephone Encounter - Judith Sultana - 12/30/2024 11:41 AM EDT SLEEP PHONE Name of caller: Yaneth Relationship to patient : Self In-state or [id number] patient: In-State Was permission obtained from patient? Yes Patient identified by Name and Date of . ( Yaneth Akins, 1955). Yes Reason for Call : Called the office requesting to speak with Rico for clarification on decreasing the pregablin. She has 200 mg capsules and is unsure how to decrease them. Number to return call Okay to leave a message ? Yes Thank you calling [facility]. You will receive a return call within [...] EST [facility] Neurology [address] [place] [address] Sylvie Paris, MARINA PORTER.[employer] SPECIALIST [address] [place] [address] 3 month virtual follow up 03/10/2025 8:00 AM EST Office Visit Cardiology [address] [facility] [address] [place], [place] [id number] [place] [address] [place] [address] QT prolongation [R94.31] documented as of this encounter Visit Diagnoses Diagnosis Restless legs syndrome Restless legs syndrome (RLS) documented in this encounter
== END 2025-01-08 07:41 | disposition home or self-care (01) ==
LOC: RAD 07:41
PROVIDERS: Visit Provider Physician Assistant
DX: M65.311 Trigger thumb, right thumb (principal); M85.88 Other specified disorders of bone density and structure, other site
CPT/HCPCS: 73130